=== PATIENT | female | born 1935 | race Caucasian/White ===

== ENCOUNTER → 2016-11-11 | Outpatient (CLI) | payer MEDICARE ==
--- NOTE | 2016-11-11 12:45 | REP ---
Chest x-ray: Two views. History: Shortness of breath. Comparison chest x-ray July 29, 2014. Findings: There is a large hiatal hernia overlying the heart. Cardiomegaly is observed and there is evidence of left atrial enlargement. There is blunting of the posterior and right lateral pleural angles indicating small bilateral effusions. Pulmonary vasculature is congested and indistinct and there is a diffuse perihilar pattern of alveolar and some interstitial opacity consistent with pulmonary edema. Mart B lines are present. Impression: CHF pattern with moderate pulmonary edema. Large hiatal hernia. Small effusions. Signed by Rodríguez Lema MD 11/11/2016 01:43 P
== END ==
LOC: M SMT 11:48
PROVIDERS: ATTEND Family Medicine
DX: K44.9 Diaphragmatic hernia without obstruction or gangrene (principal); I51.7 Cardiomegaly; J81.0 Acute pulmonary edema; J90 Pleural effusion, not elsewhere classified; M1A.0720 Idiopathic chronic gout, left ankle and foot, without tophus (tophi)
CPT/HCPCS: 36415; 71020; 84550; G0463

== ENCOUNTER → 2016-11-21 | Outpatient (CLI) | payer MEDICARE ==
[2016-11-21 18:11] LABS: CALCIUM LEVEL 9.5 MG/DL (8.8-10.2); CREATININE FOR GFR 0.97 MG/DL (0.55-1.02); POTASSIUM SERUM 3.9 MEQ/L (3.5-5.1)
== END ==
LOC: M SMT 14:18
PROVIDERS: ATTEND Family Medicine
DX: I10 Essential (primary) hypertension (principal)

== ENCOUNTER → 2016-12-04 | Outpatient (CLI) | payer MEDICARE ==
--- NOTE | 2016-12-05 05:53 | ECHO ---
DATE OF PROCEDURE: 12/04/2016 DATE OF : 1935 AGE: 81 REFERRING PROVIDER: Dr. Elvia Butcher. NETWORK OPERATIONS PROJECT MANAGER: Dr. Richards. PATIENT LOCATION: Outpatient. REASON FOR ECHOCARDIOGRAM: Atrial fibrillation. 2D MEASUREMENTS: IVS: 1.1 cm LV: 3.9 cm LVPW: 1.1 cm LA: 4.8 cm Aorta: 2.5 cm IVC: 2.3 cm DOPPLER MEASUREMENTS: Peak velocity across the aortic valve: 1.5 m/s Peak velocity across the LVOT: 0.78 m/s Mitral E: 1.3 Maximum tricuspid valve velocity: 3.1 m/s 2D COMMENTS: 1. Normal left ventricular size, wall thickness and normal global left ventricular systolic function. The estimated global left ventricular systolic ejection fraction is 65% to 70%. 2. Mildly enlarged left atrium. The right atrium also is enlarged. Normal right ventricle. 3. The atrial septum appeared to be normal without evidence of defect or shunt. 4. Normal aortic root. 5. No pericardial effusion seen. 6. Mildly calcified aortic valve with normal leaflet excursion. Moderately calcified mitral annulus with normal anterior mitral valve leaflet motion. Normal tricuspid valve and pulmonic valve. The proximal pulmonary artery branches were not well visualized. 7. The inferior vena cava was mildly enlarged, central venous pressure mildly elevated. DOPPLER: It detects mild aortic regurgitation, moderate to severe mitral regurgitation and moderate to severe tricuspid regurgitation. The calculated pulmonary artery systolic pressure varies between 40 to 50 mmHg. Assessment of the left ventricular diastolic function was limited in view of the underlying atrial fibrillation. IMPRESSION: 1. Normal global left ventricular systolic function. 2. Aortic valve sclerosis with mild aortic regurgitation but no aortic stenosis. 3. Mitral annulus calcification with moderate to severe mitral regurgitation and mildly enlarged left atrium. 4. Moderately severe tricuspid regurgitation with moderate pulmonary hypertension and dilated right atrium. 5. There are some features of elevated central venous pressure.
== END ==
LOC: M CARPUL 09:14
PROVIDERS: ATTEND Family Medicine
DX: I48.2 Chronic atrial fibrillation (principal); R60.9 Edema, unspecified

== ENCOUNTER → 2017-04-03 | Outpatient (CLI) | payer MEDICARE ==
--- NOTE | 2017-04-07 10:33 | DEXA ---
AP SPINE L1 - L4 1.105 -0.7 1.1 LT FEMUR TOTAL 0.651 -2.8 -0.8 RT FEMUR TOTAL 0.612 -3.1 -1.1 TOTAL BODY TOTAL OTHER DUAL FEMUR FRAX* ASSESSMENT Risk factors: None. 10 year probability of fracture Major osteoporotic fracture 20.8 % Hip fracture 7.6 % COMMENTS: Normal bone densitometry of the spine. There is low bone density of the left hip. There is osteoporosis of the right hip. The decreased density of the spine does represent a significant change. The decreased density of the left hip does represent a significant change. The decreased density of the right hip does represent a significant change. The density of the spine has decreased 16.5% since the initial exam on 2002. The spine density has decreased 20.6% since the most recent exam on 01/07/2012. The density of the left hip has decreased 27.6% since the initial exam on 2002. The density of the left hip has decreased 23.3% since the most recent exam on . The density of the right hip has decreased 35.0% since the initial exam on 09/05. The density of the right hip has decreased 22.9% since the most recent exam on 01/07/2012. FOLLOW-UP: Recommendation for the next bone density exam: 2 years. LEAH
== END ==
LOC: M WHC 12:53
PROVIDERS: ATTEND Family Medicine
DX: Z13.820 Encounter for screening for osteoporosis (principal); Z78.0 Asymptomatic menopausal state

== ENCOUNTER → 2017-05-29 | Outpatient (REF) | payer MEDICARE ==
[2017-05-29 12:12] LABS: CALCIUM LEVEL 9.4 MG/DL (8.8-10.2); CREATININE FOR GFR 1.12 MG/DL (0.55-1.02); GLOMERULAR FILTRATION RATE 49.8 (>32); POTASSIUM SERUM 3.7 MEQ/L (3.5-5.1)
== END ==
LOC: M SFHCPLAZ 10:03
PROVIDERS: ATTEND Family Medicine
DX: N18.3 Chronic kidney disease, stage 3 (moderate) (principal); I12.9 Hypertensive chronic kidney disease with stage 1 through stage 4 chronic kidney disease, or unspecified chronic kidney disease

== ENCOUNTER → 2017-12-29 | Outpatient (REF) | payer MEDICARE ==
[2017-12-29 14:00] LABS: ANION GAP 7 MEQ/L (8-16); BLOOD UREA NITROGEN 40 MG/DL (7-18); CALCIUM LEVEL 9.7 MG/DL (8.8-10.2); CARBON DIOXIDE LEVEL 30 MEQ/L (21-32); CHLORIDE LEVEL 106 MEQ/L (98-107); GLOMERULAR FILTRATION RATE 50.9 (>32); GLUCOSE, FASTING 83 MG/DL (70-100); POTASSIUM SERUM 4.2 MEQ/L (3.5-5.1); SODIUM LEVEL 143 MEQ/L (136-145)
== END ==
LOC: M SFHCPLAZ 10:21
DX: I10 Essential (primary) hypertension (principal)
CPT/HCPCS: 80048

== ENCOUNTER → 2019-02-03 | Outpatient (REF) | payer MEDICARE ==
[2019-02-03 16:59] LABS: CALCIUM LEVEL 9.6 MG/DL (8.8-10.2); CREATININE FOR GFR 1.08 MG/DL (0.55-1.30); GLOMERULAR FILTRATION RATE 51.7 (>32); MAGNESIUM LEVEL 2.3 MG/DL (1.8-2.4); POTASSIUM SERUM 4.1 MEQ/L (3.5-5.1); THYROID STIMULATING HORMONE 1.63 uIU/ML (0.358-3.740)
[2019-02-03 17:00] LABS: TOTAL 25(OH) VITAMIN D 34.4 NG/ML (30.0-100.0)
== END ==
LOC: M SFHCPLAZ 14:39
PROVIDERS: ATTEND Family Medicine
DX: I10 Essential (primary) hypertension (principal); R41.3 Other amnesia; F32.0 Major depressive disorder, single episode, mild
CPT/HCPCS: 36415; 80048; 82306; 82607; 83735; 84443; G0463

== ENCOUNTER → 2019-09-06 | Outpatient (REF) | payer MEDICARE ==
[2019-09-06 11:13] LABS: CALCIUM LEVEL 10.2 MG/DL (8.8-10.2); CREATININE FOR GFR 0.95 MG/DL (0.55-1.30); POTASSIUM SERUM 3.8 MEQ/L (3.5-5.1)
[2019-09-08 00:06] LABS: CREATININE, URINE 15.7 mg/dL (20.0-300.0)
== END ==
LOC: M SFHCPLAZ 08:18
PROVIDERS: ATTEND Family Medicine
DX: I12.9 Hypertensive chronic kidney disease with stage 1 through stage 4 chronic kidney disease, or unspecified chronic kidney disease (principal); N18.3 Chronic kidney disease, stage 3 (moderate); Z51.81 Encounter for therapeutic drug level monitoring; Z23 Encounter for immunization
CPT/HCPCS: 36415; 80048; 80307; 90682; G0008; G0463

== ENCOUNTER → 2020-04-18 | Outpatient (REF) | payer MEDICARE ==
[2020-04-18 13:30] LABS: CALCIUM LEVEL 9.8 MG/DL (8.8-10.2); GLOMERULAR FILTRATION RATE 56.4 (>32); URIC ACID 8.7 MG/DL (2.6-6.0)
[2020-04-18 13:34] LABS: HEMATOCRIT 39.7 % (36.0-47.0); HEMOGLOBIN 12.5 g/dl (12.0-15.5); MEAN CORPUSCULAR HEMOGLOBIN 30.6 pg (27.0-33.0); MEAN CORPUSCULAR HGB CONC 31.5 g/dl (32.0-36.5); MEAN CORPUSCULAR VOLUME 97.3 fl (80.0-96.0); PLATELET COUNT, AUTOMATED 227 10^3/uL (150-450); RED BLOOD COUNT 4.08 10^6/uL (4.00-5.40); WHITE BLOOD COUNT 6.8 10^3/uL (4.0-10.0)
[2020-04-18 14:05] LABS: TOTAL 25(OH) VITAMIN D 75.1 NG/ML (30.0-100.0)
== END ==
LOC: M SFHCPLAZ 11:34
PROVIDERS: ATTEND Family Medicine
DX: N18.3 Chronic kidney disease, stage 3 (moderate) (principal); I12.9 Hypertensive chronic kidney disease with stage 1 through stage 4 chronic kidney disease, or unspecified chronic kidney disease; M1A.0720 Idiopathic chronic gout, left ankle and foot, without tophus (tophi); E55.9 Vitamin D deficiency, unspecified
CPT/HCPCS: 36415; 80048; 82306; 84550; 85027; G0463

== ENCOUNTER 2020-08-24 10:37 | Inpatient (IN) | payer MEDICARE ==
[~2020-08-24] VITALS: Ht 147.3 cm; Wt 65.5 kg
[~2020-08-24 10:37] MED LIST: bisoproloL fumarate 5 MG TAB PO SCH
[2020-08-24] MEDS ORDERED: BISO5TAB14 PO (11:01)
[2020-08-24] MEDS ORDERED: FURO80TA2 PO (11:01)
[2020-08-24] MEDS ORDERED: VITA500030 PO (11:01)
[2020-08-24] MEDS ORDERED: AMLO1TAB25 PO (11:01)
[2020-08-24] MEDS ORDERED: SERT25TA21 PO (11:01)
[2020-08-24 11:15] LABS: VENOUS BASE EXCESS -3.5 (-2.0-2.0); VENOUS HCO3 22.5 MEQ/L (23.0-27.0); VENOUS O2 SATURATION 68.7 % (60.0-80.0); VENOUS PARTIAL PRESSURE CO2 44.2 mmHg (38.0-50.0); VENOUS PARTIAL PRESSURE O2 38.8 mmHg (30.0-50.0); VENOUS PH 7.325 UNITS (7.330-7.430); VENOUS STANDARD HCO3 20.9 MEQ/L; VENOUS TOTAL CO2 23.9 MEQ/L (24.0-28.0)
--- NOTE | 2020-08-24 11:18 | REP ---
INDICATION: Altered Mental Status. COMPARISON: None. TECHNIQUE: Helical scanning is acquired. 5 mm axial images were reformatted. Coronal MPR images were generated. FINDINGS: Bone window settings demonstrate an intact bony calvarium. There is no evidence of skull fracture or incidental bony calvarial lesion. The visualized paranasal sinuses appear clear. No intraorbital abnormality is seen. On soft tissue window setting images; the lateral, third, and fourth ventricles are normal in size and position. Alonzo-white differentiation pattern is normal above and below the tentorium. There are is no evidence of intracranial hemorrhage. No mass, edema, infarction, or midline shift is seen. No extra-axial fluid collection is appreciated. There is mild diffuse cerebral atrophy. An old lacunar infarct is seen in the left thalamus. Minimal small vessel changes are noted. There is heavy vascular calcification in the distal internal carotid arteries. IMPRESSION: Diffuse atrophy and vascular calcification. Old lacunar infarct in the left thalamus. No acute intracranial abnormality.. <Electronically signed by Genaro Lema > 08/24/20 [id number]
--- NOTE | 2020-08-24 11:19 | REP ---
INDICATION: Altered Mental Status. COMPARISON: 11/11/2016 and 07/29/2014. TECHNIQUE: Single frontal portable view of the chest is performed. FINDINGS: There is no acute infiltrate identified. There is cardiomegaly. There is calcification of the thoracic aorta. There is a large hiatal hernia projecting over the left lung base. IMPRESSION: No evidence of acute pulmonary disease. Cardiomegaly. Large hiatal hernia. <Electronically signed by Elias Alonzo > 08/24/20 [id number]
--- NOTE | 2020-08-24 11:21 | REP ---
INDICATION: Altered Mental Status. COMPARISON: Comparison is made with images from CT neck dated July 29, 2014.. TECHNIQUE: Helical scanning is acquired and overlapping 2 mm high resolution axial images were generated and reviewed at bone and soft tissue window settings. Coronal and sagittal multiplanar re-formations images are generated. FINDINGS: There is no evidence of cervical spine element fracture. No skull base fracture is seen. Cervical vertebral body heights are preserved. Alignment is normal. Facet joints are normally aligned bilaterally at each cervical level on multiplanar re-formations images. There is no evidence of intraspinal or paraspinal hematoma. No extra vertebral abnormality is seen. There is advanced degenerative spondylosis. There is a stable degenerative anterior subluxation of C3 over C4 measuring 4 mm. This is unchanged from the 2014 prior study. There is associated degenerative discogenic spurring. Advanced degenerative disc disease is seen at C4-5 C5-6 and C6-7. There is osteoarthritic facet hypertrophy in the midcervical spine bilaterally most pronounced on the left at C3-4 and C4-5 and on the right at C4-5 and C5-6. IMPRESSION: Degenerative spondylosis changes. 4 mm stable degenerative C3-4 spondylolisthesis unchanged from 2014 CT study. No fracture or other acute abnormality.. <Electronically signed by Genaro Lema > 08/24/20 [id number]
[2020-08-24 11:22] LABS: BASO % 0.3 % (0.0-1.0); EOS % 0.1 % (0.0-3.0); HEMOGLOBIN 13.8 g/dl (12.0-15.5); LYMPH # 0.6 10^3/uL (1.5-5.0); MEAN CORPUSCULAR HEMOGLOBIN 29.7 pg (27.0-33.0); MEAN CORPUSCULAR HGB CONC 32.9 g/dl (32.0-36.5); MEAN CORPUSCULAR VOLUME 90.3 fl (80.0-96.0); MONO # 0.9 10^3/uL (0.0-0.8); MONO % 8.9 % (0.0-5.0); NEUTROPHILS # 8.4 10^3/uL (1.5-8.5); NEUTROPHILS % 84.1 % (36.0-66.0); PLATELET COUNT, AUTOMATED 229 10^3/uL (150-450); RED BLOOD COUNT 4.65 10^6/uL (4.00-5.40)
[2020-08-24 12:06] LABS: ALBUMIN 3.3 GM/DL (3.2-5.2); BILIRUBIN,DIRECT 0.6 MG/DL (0.0-0.2); BILIRUBIN,TOTAL 1.3 MG/DL (0.2-1.0); THYROID STIMULATING HORMONE 1.65 uIU/ML (0.358-3.740); TOTAL PROTEIN 6.9 GM/DL (6.4-8.2)
[2020-08-24] MEDS ORDERED: NS 1,000 ML IV SCH (14:30)
--- NOTE | 2020-08-24 15:30 | HPEPDOC ---
General Date of Admission 08/24/20 Date of Service: Aug 24, 2020 Chief Complaint The patient is a 85-year-old female admitted with a reason for visit of AMS. Source: Patient Exam Limitations: Dementia Timing/Duration: 24 hours Severity: Moderate History of Present Illness Patient is 85 years old female with past medical history of atrial fibrillation, dementia, diastolic CHF presented hospital after mechanical fall. According to her family patient was found on the floor in her apartment near the bed. Patient couldn't stand up and probably she was lying on the floor all night. In ER patient was found to have CPK 1039, creatinine 1.5. CT head negative for acute bleeding or stroke. Home Medications Scheduled Amlodipine Besylate (Amlodipine Besylate) 10 Mg Tablet, 10 MG PO DAILY, (Reported) Bisoprolol Fumarate (Bisoprolol Fumarate) 5 Mg Tablet, 5 MG PO DAILY, (Reported) Cholecalciferol (Vitamin D3) (Vitamin D3) 125 Mcg Tablet, 125 MCG PO DAILY, (Reported) Furosemide (Furosemide) 80 Mg Tablet, 80 MG PO DAILY, (Reported) Sertraline HCl (Sertraline HCl) 25 Mg Tablet, 25 MG PO DAILY, (Reported) Allergies Coded Allergies: No Known Allergies (Unverified , 08/24/20) Past Medical History Medical History ATRIAL FIBRILLATION HEART FAILURE; ECHO 12/04/16 LVEF 65-70% AND UNABLE TO ASSESS DIASTOLIC FUNCTION DUE TO AFIB CHRONIC BACK PAIN; MRI 05/2016 SHOWED SPINAL NERVE COMPRESSION AT L3 AND L4 DEPENDENT EDEMA CKD 3 GOUT HYPERTENSION Surgical History NO SURGICAL HISTORY DOCUMENTED. Family History FATHER: MOTHER: 1 SON(S) , 1 DAUGHTER(S) - HEALTHY. DENIES FAMILY HISTORY OF COLON CANCER OR BREAST CANCER. Social History * Smoker: Denies Alcohol: Denies Drugs: denies A-FIB/CHADSVASC A-FIB History Current/History of A-Fib/PAF?: Yes Current PO Anticoag Therapy: No Review of Systems Constitutional: Denies: Chills, Fever Eyes: Denies: Pain ENT: Denies: Head Aches, Ear Pain Skin: Denies: Rash Pulmonary: Denies: Dyspnea Cardiovascular: Denies: Chest Pain Gastrointestinal: Denies: Nausea Genitourinary: Denies: Dysuria, Frequency Hematologic: Denies: Bruising Endocrine: Denies: Polydipsia, Polyphagia Musculoskeletal: Denies: Neck Pain Neurological: Denies: Weakness Psych: Reports: Mood Normal Physical Examination General Exam: Positive: Alert, No Acute Distress Eye Exam: Positive: PERRLA ENT Exam: Positive: Atraumatic Neck Exam: Positive: Supple; Negative: JVD Chest Exam: Positive: Clear to auscultation Heart Exam: Positive: Irregular Rhythm Telemetry: Positive: Atrial fibrillation Abdomen Exam: Positive: Normal bowel sounds Extremity Exam: Negative: Clubbing, Cyanosis Skin Exam: Positive: Nl turgor and temperature Neuro Exam: Positive: Sensation Intact, Reflexes 2+ Psych Exam: Positive: Other (dementia); Negative: Memory Intact Vital Signs Vital Signs Date Time Temp Pulse Resp B/P (MAP) Pulse Ox O2 Delivery O2 Flow Rate FiO2 08/24/20 12:49 100 18 143/90 (107) 97 Room Air 08/24/20 10:55 98.9 Laboratory Data Labs 24H Laboratory Tests 2 08/24/20 10:59: Blood Gas Bicarbonate Standard 20.9, Venous Blood pH 7.325L, Venous Blood Partial Pressure CO2 44.2, Venous Blood Partial Pressure O2 38.8, Venous Blood Total Carbon Dioxide 23.9L, Venous Blood HCO3 22.5L, Venous Blood Oxygen Saturation 68.7, Venous Blood Base Excess -3.5L, Osmolality 286, Total Bilirubin 1.3H, Direct Bilirubin 0.6H, Aspartate Amino Transf (AST/SGOT) 73H, Alanine Aminotransferase (ALT/SGPT) 36, Alkaline Phosphatase 104, Ammonia < 10, Total Creatine Kinase 1039H, Total Protein 6.9, Albumin 3.3, Albumin/Globulin Ratio 0.9L, Thyroid Stimulating Hormone (TSH) 1.650 08/24/20 11:00: Immature Granulocyte % (Auto) 0.6, Neutrophils (%) (Auto) 84.1H, Lymphocytes (%) (Auto) 6.0L, Monocytes (%) (Auto) 8.9H, Eosinophils (%) (Auto) 0.1, Basophils (%) (Auto) 0.3, Neutrophils # (Auto) 8.4, Lymphocytes # (Auto) 0.6L, Monocytes # (Auto) 0.9H, Eosinophils # (Auto) 0.0, Basophils # (Auto) 0.0, Nucleated Red Blood Cells % (auto) 0.0, Lactic Acid Level 1.6 08/24/20 11:27: POC Glucose (Misc Panel) 147H, POC Sodium (Misc Panel) 132L, POC Potassium (Misc Panel) 3.4L, POC Chloride (Misc Panel) 99, POC Total CO2 (Misc Panel) 24.0, POC Blood Urea Nitrogen (Misc Panel 32H, POC Ionized Calcium (Misc Panel) 4.6, POC Creatinine (Misc Panel) 1.5H, POC Hematocrit (Misc Panel) 43.0 08/24/20 11:31: POC Troponin I (Misc) 0.10H 08/24/20 11:41: Urine Color TONIO, Urine Appearance CLEAR, Urine pH 6.0, Urine Specific [place] 1.032, Urine Protein 3+H, Urine Glucose (UA) 1+H, Urine Ketones TRACEH, Urine Blood 2+H, Urine Nitrite NEGATIVE, Urine Bilirubin NEGATIVE, Urine Urobilinogen 0.2, Urine Leukocyte Esterase NEGATIVE, Urine WBC (Auto) 0, Urine RBC (Auto) 1, Urine Hyaline Casts (Auto) 0, Urine Bacteria (Auto) NEGATIVE, Urine Squamous Epithelial Cells 0, Urine Sperm (Auto) CBC/BMP Laboratory Tests 08/24/20 11:00 Assessment/Plan Patient is 85 years old female with past medical history of atrial fibrillation, dementia, diastolic CHF presented hospital after mechanical fall. According to her family patient was found on the floor in her apartment near the bed. Patient couldn't stand up and probably she was lying on the floor all night. In ER patient was found to have CPK 1039, creatinine 1.5. CT head negative for acute bleeding or stroke. Problems (1) Physical deconditioning Status: Chronic Problem Text: Patient was found on the floor due to mechanical fall Imaging study negative PT/OT (2) Rhabdomyolysis Status: Acute Problem Text: Secondary to mechanical fall IV fluid Continue to monitor CPK (3) Atrial fibrillation Status: Chronic Problem Text: Patient was not on the anticoagulation I started apixaban 5 milligram twice a day Patient has tachycardia most likely secondary to dehydration and most likely she missed her dose of bisoprolol Metoprolol tartrate 25 mg once now (4) Hypertension Status: Chronic Problem Text: Continue home meds Plan / VTE VTE Prophylaxis Ordered?: Yes SAMANTHA MCKEE DO Aug 24, 2020 15:30
[2020-08-24] MEDS: NS 1,000 ML IV SCH ×2 (15:54→21:57)
[2020-08-24] MEDS ORDERED: METOPROLOL TART 25 MG TABLET PO ONE (16:00)
[2020-08-24] MEDS: ONDANSETRON 4MG/2ML VIAL IV PRN ×2 (16:31→16:32)
[2020-08-24] MEDS: amLODIPine 10 MG TAB PO SCH (16:32)
[2020-08-24] MEDS: SERTRALINE HCL 25 MG TABLET PO SCH (16:32)
[2020-08-24 17:05] VITALS: BP 180/90
[2020-08-24] MEDS ORDERED: CAPTOpril 6.25 MG PER 1/2 TABLET PO ONE (17:30)
[2020-08-24 18:54] VITALS: BP 168/84
[2020-08-24] MEDS ORDERED: METOPROLOL TART 12.5 MG PER 1/2 TAB PO SCH (21:00)
[2020-08-24] MEDS ORDERED: HEPARIN SOD (PORCINE) 5000UNITS/ML 1ML VIAL/SYRINGE SC SCH (21:00)
[2020-08-24] MEDS: APIXABAN 5 MG TAB (ELIQUIS) PO SCH (21:57)
[2020-08-24 22:00] VITALS: BP 151/91
[2020-08-25] MEDS: NS 1,000 ML IV SCH ×3 (03:30→14:24)
[2020-08-25 06:00] VITALS: BP 172/82
[2020-08-25 07:02] LABS: HEMATOCRIT 38.6 % (36.0-47.0); MEAN CORPUSCULAR HEMOGLOBIN 30.4 pg (27.0-33.0); MEAN CORPUSCULAR HGB CONC 33.7 g/dl (32.0-36.5); MEAN CORPUSCULAR VOLUME 90.4 fl (80.0-96.0); PLATELET COUNT, AUTOMATED 202 10^3/uL (150-450); RED BLOOD COUNT 4.27 10^6/uL (4.00-5.40); WHITE BLOOD COUNT 8.1 10^3/uL (4.0-10.0)
[2020-08-25 07:34] LABS: ALBUMIN 2.6 GM/DL (3.2-5.2); BILIRUBIN,TOTAL 0.7 MG/DL (0.2-1.0); CALCIUM LEVEL 8.7 MG/DL (8.8-10.2); CREATININE FOR GFR 1.6 MG/DL (0.55-1.30); GLOMERULAR FILTRATION RATE 32.8 (>32); MAGNESIUM LEVEL 2.2 MG/DL (1.8-2.4); TOTAL PROTEIN 5.8 GM/DL (6.4-8.2)
[2020-08-25] MEDS ORDERED: POTASSIUM CHLORIDE 10 MEQ SR TABLET PO ONE ×2 (08:30→14:00)
[2020-08-25] MEDS ORDERED: FLUBLOK(EGG FREE)(QUAD)INFLUENZA VACC 0.5ML SYRINGE 18YRS & OLDER IM ONE (09:00)
[2020-08-25] MEDS ORDERED: lisinopriL 20 MG TAB PO SCH (09:00)
[2020-08-25] MEDS ORDERED: METOPROLOL TART 25 MG TABLET PO SCH (09:00)
[2020-08-25] MEDS: amLODIPine 10 MG TAB PO SCH (09:33)
[2020-08-25] MEDS: APIXABAN 5 MG TAB (ELIQUIS) PO SCH ×3 (09:34→21:00)
[2020-08-25] MEDS: SERTRALINE HCL 25 MG TABLET PO SCH (09:34)
--- NOTE | 2020-08-25 13:26 | IPNPDOC ---
Text Note Date of Service The patient was seen on 08/25/20. NOTE Subjective: No any acute events overnight. Patient denied fever, chills, nausea, diarrhea or dysuria Objective: GENERAL APPEARANCE: NAD HEENT: no scleral icterus, no JVD, EOMI CARDIOVASCULAR: S1S2 LUNGS: CTA ABDOMEN: soft & not tender w palpitation MUSCULOSKELETAL: no cyanosis, no swelling INTEGUMENT: no generalized palor NEUROLOGICAL: cranial nerve function from 2-12 intact intact, follows commands, speech not dysarthric Assessment/Plan Patient is 85 years old female with past medical history of atrial fibrillation, dementia, diastolic CHF presented hospital after mechanical fall. According to her family patient was found on the floor in her apartment near the bed. Patient couldn't stand up and probably she was lying on the floor all night. In ER patient was found to have CPK 1039, creatinine 1.5. CT head negative for acute bleeding or stroke. Problems (1) Physical deconditioning Patient was found on the floor due to mechanical fall Imaging study negative PT/OT (2) Rhabdomyolysis Improved Secondary to mechanical fall IV fluid CPK trended down (3) Atrial fibrillation Patient was not on the anticoagulation I started apixaban 5 milligram twice a day Patient has tachycardia most likely secondary to dehydration and most likely she missed her dose of bisoprolol Metoprolol tartrate 25 mg once now (4) Hypertension Continue home meds VS,Fishbone, I+O VS, Fishbone, I+O Laboratory Tests 08/25/20 06:32 Vital Signs Date Time Temp Pulse Resp B/P (MAP) Pulse Ox O2 Delivery O2 Flow Rate FiO2 08/25/20 09:33 100 139/99 08/25/20 06:00 97.6 20 95 Room Air I&O- Last 24 Hours up to 6 AM 08/25/20 06:00 Intake Total 1720 ml Output Total 0 ml Balance 1720 ml SAMANTHA MCKEE DO Aug 25, 2020 13:26
[2020-08-25 14:00] VITALS: BP 97/59
[2020-08-25] MEDS: QUEtiapine FUMARATE 12.5 MG HALF-TAB PO ONE ×3 (18:15→20:14)
[2020-08-25] MEDS: METOPROLOL TART 25 MG TABLET PO SCH ×2 (20:16→21:00)
[2020-08-25 22:00] VITALS: BP 109/89
[2020-08-26 06:00] VITALS: BP 125/85
[2020-08-26 06:53] LABS: HEMATOCRIT 34.2 % (36.0-47.0); HEMOGLOBIN 11.1 g/dl (12.0-15.5); MEAN CORPUSCULAR HEMOGLOBIN 30.5 pg (27.0-33.0); MEAN CORPUSCULAR HGB CONC 32.5 g/dl (32.0-36.5); PLATELET COUNT, AUTOMATED 195 10^3/uL (150-450); RED BLOOD COUNT 3.64 10^6/uL (4.00-5.40); WHITE BLOOD COUNT 6.3 10^3/uL (4.0-10.0)
[2020-08-26 07:03] LABS: CALCIUM LEVEL 8.3 MG/DL (8.8-10.2); CREATININE FOR GFR 1.87 MG/DL (0.55-1.30); GLOMERULAR FILTRATION RATE 27.4 (>32); MAGNESIUM LEVEL 2.2 MG/DL (1.8-2.4); POTASSIUM SERUM 3.9 MEQ/L (3.5-5.1)
--- NOTE | 2020-08-26 08:13 | ECGEPIP ---
[facility] Test Date: 2020-08-25 Pat Name: NEREYDA GARLAND Department: Room: [place] [address] Gender: Female Rheumatology Specialist: GLADIS : 1935 Requested By: SAMANTHA MCKEE Order Number: [id number] Reading MD: Jeffery Murray Measurements Intervals [place] Rate: 67 P: MD: 0 QRS: 41 QRSD: 103 T: 30 QT: 295 QTc: 313 Interpretive Statements ATRIAL FIBRILLATION NONSPECIFIC ST & T-WAVE ABNORMALITY Low QRS complex voltage in the limb leads Nonspecific ST-T wave abnormalities Electronically Signed on 08-26-2020 8:13:18 EST by Jeffery Murray
[2020-08-26] MEDS: amLODIPine 10 MG TAB PO SCH (09:29)
[2020-08-26] MEDS: SERTRALINE HCL 25 MG TABLET PO SCH (09:29)
[2020-08-26] MEDS: APIXABAN 5 MG TAB (ELIQUIS) PO SCH ×2 (09:30→22:05)
[2020-08-26] MEDS: NS 1,000 ML IV SCH ×2 (09:30→15:15)
[2020-08-26] MEDS: METOPROLOL TART 25 MG TABLET PO SCH (09:30)
[2020-08-26] MEDS ORDERED: PILL CUTTER 1 EACH XX PRN (09:45)
[2020-08-26 14:00] VITALS: BP 161/85
--- NOTE | 2020-08-26 15:40 | IPNPDOC ---
Text Note Date of Service The patient was seen on 08/26/20. NOTE Subjective: No any acute events overnight. Patient disoriented in time but or iented in place Objective: GENERAL APPEARANCE: NAD HEENT: no scleral icterus, no JVD, EOMI CARDIOVASCULAR: S1S2 LUNGS: CTA ABDOMEN: soft & not tender w palpitation MUSCULOSKELETAL: no cyanosis, no swelling INTEGUMENT: no generalized palor NEUROLOGICAL: cranial nerve function from 2-12 intact intact, follows commands, speech not dysarthric Assessment/Plan Patient is 85 years old female with past medical history of atrial fibrillation, dementia, diastolic CHF presented hospital after mechanical fall. According to her family patient was found on the floor in her apartment near the bed. Patient couldn't stand up and probably she was lying on the floor all night. In ER patient was found to have CPK 1039, creatinine 1.5. CT head negative for acute bleeding or stroke. Problems (1) Physical deconditioning Patient was found on the floor due to mechanical fall Imaging study negative PT/OT (2) Rhabdomyolysis Improved Secondary to mechanical fall CPK trended down (3) Atrial fibrillation Patient was not on the anticoagulation I started apixaban 5 milligram twice a day Patient had tachycardia most likely secondary to dehydration and most likely she missed her dose of bisoprolol c/w Metoprolol tartrate (4) Hypertension Continue home meds LUIS MANUEL 2/2 to rhabdomyolysis I decreased the dose of lisinopril to 10 mg VS,Fishbone, I+O VS, Fishbone, I+O Laboratory Tests 08/26/20 05:47 Vital Signs Date Time Temp Pulse Resp B/P (MAP) Pulse Ox O2 Delivery O2 Flow Rate FiO2 08/26/20 14:00 97.5 113 18 161/85 (110) 97 Room Air I&O- Last 24 Hours up to 6 AM 08/26/20 06:00 Intake Total 2520 ml Output Total 400 ml Balance 2120 ml SAMANTHA MCKEE DO Aug 26, 2020 15:40
[2020-08-26] MEDS ORDERED: lisinopriL 10 MG TAB PO ONE (16:00)
--- NOTE | 2020-08-26 16:49 | ECGEPIP ---
[facility] - ED Test Date: 2020-08-24 Pat Name: NEREYDA GARLAND Department: Room: - Gender: Female Property Manager: : 1935 Requested By: Kimber Joshi Order Number: [id number] Reading MD: Kimber Joshi Measurements Intervals [place] Rate: 93 P: VA: 0 QRS: 48 QRSD: 101 T: -10 QT: 361 QTc: 451 Interpretive Statements ATRIAL FIBRILLATION MINIMAL VOLTAGE CRITERIA FOR LVH, CONSIDER NORMAL VARIANT MODERATE ST DEPRESSION Electronically Signed on 08-26-2020 16:49:42 EST by Kimber Joshi
[2020-08-26] MEDS ORDERED: OLANZapine INTRAMUSCULAR 10MG VIAL IM ONE (18:00)
[2020-08-26] MEDS: ACETAMINOPHEN TAB 650MG DOSE (2X325MG) PO PRN (18:25)
[2020-08-26] MEDS: ONDANSETRON 4MG/2ML VIAL IV PRN (19:28)
[2020-08-26] MEDS ORDERED: METOPROLOL TART 12.5 MG PER 1/2 TAB PO SCH (21:00)
[2020-08-27 06:00] VITALS: BP 189/88
[2020-08-27 06:13] LABS: HEMATOCRIT 33.6 % (36.0-47.0); HEMOGLOBIN 11.1 g/dl (12.0-15.5); MEAN CORPUSCULAR HEMOGLOBIN 30.7 pg (27.0-33.0); MEAN CORPUSCULAR VOLUME 93.1 fl (80.0-96.0); PLATELET COUNT, AUTOMATED 198 10^3/uL (150-450); RED BLOOD COUNT 3.61 10^6/uL (4.00-5.40); WHITE BLOOD COUNT 6.5 10^3/uL (4.0-10.0)
[2020-08-27 06:31] LABS: CALCIUM LEVEL 8.5 MG/DL (8.8-10.2); CREATININE FOR GFR 1.74 MG/DL (0.55-1.30); GLOMERULAR FILTRATION RATE 29.7 (>32); MAGNESIUM LEVEL 2.1 MG/DL (1.8-2.4); POTASSIUM SERUM 3.5 MEQ/L (3.5-5.1)
[2020-08-27] MEDS ORDERED: FUROSEMIDE 40MG/4ML VIAL (J1940) IV ONE (09:00)
[2020-08-27] MEDS: amLODIPine 10 MG TAB PO SCH (10:50)
[2020-08-27] MEDS: SERTRALINE HCL 25 MG TABLET PO SCH (10:50)
[2020-08-27] MEDS: METOPROLOL TART 12.5 MG PER 1/2 TAB PO SCH ×3 (10:50→20:33)
[2020-08-27] MEDS: APIXABAN 5 MG TAB (ELIQUIS) PO SCH ×2 (10:50→20:32)
[2020-08-27 14:00] VITALS: BP 140/67
--- NOTE | 2020-08-27 15:23 | IPNPDOC ---
Text Note Date of Service The patient was seen on 08/27/20. NOTE Subjective: Patient was agitated yesterday in the evening. In the morning she seems to be more confused. She oriented in time and in place. Objective: GENERAL APPEARANCE: NAD HEENT: no scleral icterus, no JVD, EOMI CARDIOVASCULAR: S1S2 LUNGS: CTA ABDOMEN: soft & not tender w palpitation MUSCULOSKELETAL: no cyanosis, no swelling INTEGUMENT: no generalized palor NEUROLOGICAL: cranial nerve function from 2-12 intact intact, follows commands, speech not dysarthric Assessment/Plan Patient is 85 years old female with past medical history of atrial fibrillation, dementia, diastolic CHF presented hospital after mechanical fall. According to her family patient was found on the floor in her apartment near the bed. Patient couldn't stand up and probably she was lying on the floor all night. In ER patient was found to have CPK 1039, creatinine 1.5. CT head negative for acute bleeding or stroke. Problems (1) Physical deconditioning Patient was found on the floor due to mechanical fall Imaging study negative PT/OT (2) Rhabdomyolysis Improved Secondary to mechanical fall CPK trended down (3) Atrial fibrillation Patient was not on the anticoagulation I started apixaban 5 milligram twice a day Patient had tachycardia most likely secondary to dehydration and most likely she missed her dose of bisoprolol c/w Metoprolol tartrate (4) Hypertension Continue home meds LUIS MANUEL Improved today 2/2 to rhabdomyolysis Continue to monitor Delirium/encephalopathy I added Seroquel 12.5 daily at bedtime Frequent orientation VS,Gabrielle, I+O VS, Gabrielle, I+O Laboratory Tests 08/27/20 05:29 Vital Signs Date Time Temp Pulse Resp B/P (MAP) Pulse Ox O2 Delivery O2 Flow Rate FiO2 08/27/20 10:50 100 157/92 08/27/20 06:00 98.6 20 95 Room Air I&O- Last 24 Hours up to 6 AM 08/27/20 06:00 Intake Total 3300 ml Output Total 1440 ml Balance 1860 ml SAMANTHA MCKEE DO Aug 27, 2020 15:23
[2020-08-27] MEDS: BISACODYL 5 MG TAB PO SCH (16:17)
[2020-08-27] MEDS ORDERED: QUEtiapine FUMARATE 12.5 MG HALF-TAB PO SCH (21:00)
[2020-08-27 22:00] VITALS: BP 175/90
[2020-08-28 06:00] VITALS: BP 164/78
[2020-08-28 06:25] LABS: HEMATOCRIT 34.9 % (36.0-47.0); HEMOGLOBIN 11.2 g/dl (12.0-15.5); MEAN CORPUSCULAR HEMOGLOBIN 29.7 pg (27.0-33.0); MEAN CORPUSCULAR HGB CONC 32.1 g/dl (32.0-36.5); MEAN CORPUSCULAR VOLUME 92.6 fl (80.0-96.0); PLATELET COUNT, AUTOMATED 203 10^3/uL (150-450); RED BLOOD COUNT 3.77 10^6/uL (4.00-5.40); WHITE BLOOD COUNT 5.9 10^3/uL (4.0-10.0)
[2020-08-28 06:54] LABS: CALCIUM LEVEL 8.9 MG/DL (8.8-10.2); CREATININE FOR GFR 1.72 MG/DL (0.55-1.30); GLOMERULAR FILTRATION RATE 30.1 (>32); MAGNESIUM LEVEL 2.1 MG/DL (1.8-2.4); POTASSIUM SERUM 3.1 MEQ/L (3.5-5.1)
[2020-08-28] MEDS ORDERED: POTASSIUM CHLORIDE 10 MEQ SR TABLET PO ONE (08:15)
[2020-08-28] MEDS: SERTRALINE HCL 25 MG TABLET PO SCH (10:26)
[2020-08-28] MEDS: BISACODYL 5 MG TAB PO SCH (10:26)
[2020-08-28] MEDS: amLODIPine 10 MG TAB PO SCH (10:26)
[2020-08-28] MEDS: APIXABAN 5 MG TAB (ELIQUIS) PO SCH ×2 (10:26→20:48)
[2020-08-28] MEDS: METOPROLOL TART 12.5 MG PER 1/2 TAB PO SCH ×3 (10:26→21:01)
--- NOTE | 2020-08-28 16:59 | IPNPDOC ---
Text Note Date of Service The patient was seen on 08/28/20. NOTE Subjective: Patient was somnolent in the morning. She was oriented in place Objective: GENERAL APPEARANCE: NAD HEENT: no scleral icterus, no JVD, EOMI CARDIOVASCULAR: S1S2 LUNGS: CTA ABDOMEN: soft & not tender w palpitation MUSCULOSKELETAL: no cyanosis, no swelling INTEGUMENT: no generalized palor NEUROLOGICAL: cranial nerve function from 2-12 intact intact, follows commands, speech not dysarthric Assessment/Plan Patient is 85 years old female with past medical history of atrial fibrillation, dementia, diastolic CHF presented hospital after mechanical fall. According to her family patient was found on the floor in her apartment near the bed. Patient couldn't stand up and probably she was lying on the floor all night. In ER patient was found to have CPK 1039, creatinine 1.5. CT head negative for acute bleeding or stroke. Problems (1) Physical deconditioning Patient was found on the floor due to mechanical fall Imaging study negative PT/OT (2) Rhabdomyolysis Improved Secondary to mechanical fall CPK trended down (3) Atrial fibrillation Heart rate is under control Patient was not on the anticoagulation I started apixaban 5 milligram twice a day Patient had tachycardia most likely secondary to dehydration and most likely she missed her dose of bisoprolol c/w Metoprolol tartrate (4) Hypertension Continue home meds LUIS MANUEL Improved today 2/2 to rhabdomyolysis Continue to monitor Delirium/encephalopathy Patient was somnolent in the morning, DC Seroquel Frequent orientation VS,Gabrielle, I+O VS, Gabrielle, I+O Laboratory Tests 08/28/20 06:02 Vital Signs Date Time Temp Pulse Resp B/P (MAP) Pulse Ox O2 Delivery O2 Flow Rate FiO2 08/28/20 15:37 68 162/76 08/28/20 06:00 99.3 18 95 Room Air I&O- Last 24 Hours up to 6 AM 08/28/20 06:00 Intake Total 530 ml Output Total 2725 ml Balance -2195 ml SAMANTHA MCKEE DO Aug 28, 2020 16:59
[2020-08-28] MEDS: ACETAMINOPHEN TAB 650MG DOSE (2X325MG) PO PRN (20:48)
[2020-08-28 22:00] VITALS: BP 150/86
[2020-08-29 06:00] VITALS: BP 160/79
[2020-08-29 07:00] LABS: HEMATOCRIT 35.1 % (36.0-47.0); HEMOGLOBIN 11.5 g/dl (12.0-15.5); MEAN CORPUSCULAR HEMOGLOBIN 30.3 pg (27.0-33.0); MEAN CORPUSCULAR HGB CONC 32.8 g/dl (32.0-36.5); MEAN CORPUSCULAR VOLUME 92.4 fl (80.0-96.0); PLATELET COUNT, AUTOMATED 191 10^3/uL (150-450); WHITE BLOOD COUNT 8.3 10^3/uL (4.0-10.0)
[2020-08-29 07:21] LABS: CALCIUM LEVEL 8.8 MG/DL (8.8-10.2); CREATININE FOR GFR 1.42 MG/DL (0.55-1.30); GLOMERULAR FILTRATION RATE 37.6 (>32); MAGNESIUM LEVEL 1.8 MG/DL (1.8-2.4); POTASSIUM SERUM 3.4 MEQ/L (3.5-5.1)
[2020-08-29] MEDS ORDERED: POTASSIUM CHLORIDE 10 MEQ SR TABLET PO ONE (08:15)
[2020-08-29] MEDS: BISACODYL 5 MG TAB PO SCH (09:42)
[2020-08-29] MEDS: SERTRALINE HCL 25 MG TABLET PO SCH (09:42)
[2020-08-29] MEDS: METOPROLOL TART 12.5 MG PER 1/2 TAB PO SCH ×3 (09:42→20:49)
[2020-08-29] MEDS: amLODIPine 10 MG TAB PO SCH (09:42)
[2020-08-29] MEDS: APIXABAN 5 MG TAB (ELIQUIS) PO SCH ×2 (09:42→20:50)
--- NOTE | 2020-08-29 13:06 | IPNPDOC ---
Text Note Date of Service The patient was seen on 08/29/20. NOTE Subjective: Patient more awake in the morning and alert. However she is not oriented to place. Patient developed 3d time urinary retention, she was catheterized 600cc was requested Objective: GENERAL APPEARANCE: NAD HEENT: no scleral icterus, no JVD, EOMI CARDIOVASCULAR: S1S2 LUNGS: CTA ABDOMEN: soft & not tender w palpitation MUSCULOSKELETAL: no cyanosis, no swelling INTEGUMENT: no generalized palor NEUROLOGICAL: cranial nerve function from 2-12 intact intact, follows commands, speech not dysarthric Assessment/Plan Patient is 85 years old female with past medical history of atrial fibrillation, dementia, diastolic CHF presented hospital after mechanical fall. According to her family patient was found on the floor in her apartment near the bed. Patient couldn't stand up and probably she was lying on the floor all night. In ER patient was found to have CPK 1039, creatinine 1.5. CT head negative for acute bleeding or stroke. Problems Physical deconditioning Patient was found on the floor due to mechanical fall Imaging study negative PT/OT Rhabdomyolysis Improved Secondary to mechanical fall CPK trended down Atrial fibrillation Heart rate is under control Patient was not on the anticoagulation I started apixaban 5 milligram twice a day Patient had tachycardia most likely secondary to dehydration and most likely she missed her dose of bisoprolol c/w Metoprolol tartrate Hypertension Continue home meds Lisinopril added LUIS MANUEL Improved today 2/2 to rhabdomyolysis Continue to monitor Delirium/encephalopathy Delirium resolved Confusion most likely secondary to advanced dementia Urinary retention Lamas placed VS,Fishbone, I+O VS, Fishbone, I+O Laboratory Tests 08/29/20 06:34 Vital Signs Date Time Temp Pulse Resp B/P (MAP) Pulse Ox O2 Delivery O2 Flow Rate FiO2 08/29/20 09:42 76 160/78 08/29/20 06:00 98.9 8 99 Room Air I&O- Last 24 Hours up to 6 AM 08/29/20 06:00 Intake Total 980 ml Output Total 2215 ml Balance -1235 ml SAMANTHA MCKEE DO Aug 29, 2020 13:06
[2020-08-29] MEDS: ACETAMINOPHEN TAB 650MG DOSE (2X325MG) PO PRN (13:07)
[2020-08-29] MEDS ORDERED: lisinopriL 20 MG TAB PO ONE (13:15)
[2020-08-29 14:00] VITALS: BP 160/70
[2020-08-29 22:00] VITALS: BP 180/100
[2020-08-30] MEDS: ACETAMINOPHEN TAB 650MG DOSE (2X325MG) PO PRN ×3 (00:12→16:38)
[2020-08-30 02:00] VITALS: BP 168/88
[2020-08-30 06:00] VITALS: BP 158/84
[2020-08-30 06:39] LABS: HEMATOCRIT 31.5 % (36.0-47.0); HEMOGLOBIN 10.4 g/dl (12.0-15.5); MEAN CORPUSCULAR HEMOGLOBIN 30.3 pg (27.0-33.0); MEAN CORPUSCULAR VOLUME 91.8 fl (80.0-96.0); PLATELET COUNT, AUTOMATED 202 10^3/uL (150-450); RED BLOOD COUNT 3.43 10^6/uL (4.00-5.40); WHITE BLOOD COUNT 6.8 10^3/uL (4.0-10.0)
[2020-08-30 06:59] LABS: CALCIUM LEVEL 8.5 MG/DL (8.8-10.2); CREATININE FOR GFR 1.23 MG/DL (0.55-1.30); GLOMERULAR FILTRATION RATE 44.4 (>32); MAGNESIUM LEVEL 1.8 MG/DL (1.8-2.4); POTASSIUM SERUM 3.2 MEQ/L (3.5-5.1)
[2020-08-30] MEDS ORDERED: POTASSIUM CHLORIDE 10 MEQ SR TABLET PO ONE (08:00)
[2020-08-30] MEDS: BISACODYL 5 MG TAB PO SCH (09:00)
[2020-08-30] MEDS ORDERED: lisinopriL 20 MG TAB PO SCH (09:00)
[2020-08-30] MEDS: METOPROLOL TART 12.5 MG PER 1/2 TAB PO SCH ×3 (10:23→20:30)
[2020-08-30] MEDS: APIXABAN 5 MG TAB (ELIQUIS) PO SCH ×2 (10:23→20:30)
[2020-08-30] MEDS: SERTRALINE HCL 25 MG TABLET PO SCH (10:24)
[2020-08-30] MEDS: amLODIPine 10 MG TAB PO SCH (10:24)
[2020-08-30 11:39] LABS: CLOSTRIDIUM DIFFICILE PCR POSITIVE (NEGATIVE)
--- NOTE | 2020-08-30 12:23 | IPNPDOC ---
Text Note Date of Service The patient was seen on 08/30/20. NOTE Subjective: Patient developed few liquid bowel movements with foul-smelling stool. Objective: GENERAL APPEARANCE: NAD HEENT: no scleral icterus, no JVD, EOMI CARDIOVASCULAR: S1S2 LUNGS: CTA ABDOMEN: soft & not tender w palpitation MUSCULOSKELETAL: no cyanosis, no swelling INTEGUMENT: no generalized palor NEUROLOGICAL: cranial nerve function from 2-12 intact intact, follows commands, speech not dysarthric Assessment/Plan Patient is 85 years old female with past medical history of atrial fibrillation, dementia, diastolic CHF presented hospital after mechanical fall. According to her family patient was found on the floor in her apartment near the bed. Patient couldn't stand up and probably she was lying on the floor all night. In ER patient was found to have CPK 1039, creatinine 1.5. CT head negative for acute bleeding or stroke. Problems (1) Physical deconditioning Patient was found on the floor due to mechanical fall Imaging study negative PT/OT (2) Rhabdomyolysis Improved Secondary to mechanical fall CPK trended down (3) Atrial fibrillation Heart rate is under control Patient was not on the anticoagulation I started apixaban 5 milligram twice a day Patient had tachycardia most likely secondary to dehydration and most likely she missed her dose of bisoprolol c/w Metoprolol tartrate (4) Hypertension/hypertensive urgency Continue home meds I increased the dose of lisinopril 40 mg due to increased blood pressure the morning up to 180 LUIS MANUEL Improved today 2/2 to rhabdomyolysis Continue to monitor Delirium/encephalopathy Resolved Diarrhea C. difficile test positive Vancomycin by mouth 150 every 6 hours VS,Gabrielle, I+O VS, Gabrielle, I+O Laboratory Tests 08/30/20 06:16 08/30/20 06:17 Vital Signs Date Time Temp Pulse Resp B/P (MAP) Pulse Ox O2 Delivery O2 Flow Rate FiO2 08/30/20 10:23 180/80 08/30/20 10:23 80 08/30/20 06:00 98.2 19 95 Room Air I&O- Last 24 Hours up to 6 AM 08/30/20 06:00 Intake Total 1020 ml Output Total 925 ml Balance 95 ml SAMANTHA MCKEE DO Aug 30, 2020 12:23
[2020-08-30] MEDS: VANCOMYCIN ORAL SOL 250MG/5ML ORAL SYRINGE PO SCH ×3 (13:40→23:50)
[2020-08-30 14:00] VITALS: BP 171/80
[2020-08-30] MEDS ORDERED: CHLORTHALIDONE 25 MG TAB PO ONE (16:45)
[2020-08-30 17:54] VITALS: BP 166/70
[2020-08-30] MEDS: lisinopriL 20 MG TAB PO SCH (20:30)
[2020-08-30 22:00] VITALS: BP 160/106
[2020-08-30 23:30] VITALS: BP 180/70
[2020-08-31] MEDS: VANCOMYCIN ORAL SOL 250MG/5ML ORAL SYRINGE PO SCH ×4 (05:11→23:57)
[2020-08-31 06:00] VITALS: BP 147/83
[2020-08-31 06:33] LABS: HEMATOCRIT 32.3 % (36.0-47.0); HEMOGLOBIN 10.6 g/dl (12.0-15.5); MEAN CORPUSCULAR HEMOGLOBIN 30.5 pg (27.0-33.0); MEAN CORPUSCULAR HGB CONC 32.8 g/dl (32.0-36.5); MEAN CORPUSCULAR VOLUME 92.8 fl (80.0-96.0); PLATELET COUNT, AUTOMATED 229 10^3/uL (150-450); RED BLOOD COUNT 3.48 10^6/uL (4.00-5.40)
[2020-08-31 06:59] LABS: CREATININE FOR GFR 1.31 MG/DL (0.55-1.30); GLOMERULAR FILTRATION RATE 41.3 (>32); MAGNESIUM LEVEL 1.8 MG/DL (1.8-2.4); POTASSIUM SERUM 3.5 MEQ/L (3.5-5.1)
[2020-08-31] MEDS ORDERED: lisinopriL 40 MG TAB PO SCH (09:00)
[2020-08-31] MEDS ORDERED: CHLORTHALIDONE 25 MG TAB PO SCH (09:00)
[2020-08-31] MEDS: METOPROLOL TART 12.5 MG PER 1/2 TAB PO SCH ×3 (10:25→20:45)
[2020-08-31] MEDS: SERTRALINE HCL 25 MG TABLET PO SCH (10:25)
[2020-08-31] MEDS: lisinopriL 20 MG TAB PO SCH ×2 (10:25→20:44)
[2020-08-31] MEDS: amLODIPine 10 MG TAB PO SCH (10:25)
[2020-08-31] MEDS: APIXABAN 5 MG TAB (ELIQUIS) PO SCH ×2 (10:25→20:45)
[2020-08-31] MEDS: ACETAMINOPHEN TAB 650MG DOSE (2X325MG) PO PRN (10:26)
[2020-08-31] MEDS: ANALGESIC BALM CRM 120 GM TOP SCH ×2 (10:26→20:46)
[2020-08-31] MEDS ORDERED: **hydrALAZINE** 50 MG TAB PO ONE (10:45)
[2020-08-31] MEDS ORDERED: POTASSIUM CHLORIDE 10 MEQ SR TABLET PO ONE (10:45)
--- NOTE | 2020-08-31 12:55 | IPNPDOC ---
Text Note Date of Service The patient was seen on 08/31/20. NOTE Subjective: Patient developed 4 bowel movements overnight, patient not oriented in place and time the morning Objective: GENERAL APPEARANCE: NAD HEENT: no scleral icterus, no JVD, EOMI CARDIOVASCULAR: S1S2 LUNGS: CTA ABDOMEN: soft & not tender w palpitation MUSCULOSKELETAL: no cyanosis, no swelling INTEGUMENT: no generalized palor NEUROLOGICAL: cranial nerve function from 2-12 intact intact, follows commands, speech not dysarthric Assessment/Plan Patient is 85 years old female with past medical history of atrial fibrillation, dementia, diastolic CHF presented hospital after mechanical fall. According to her family patient was found on the floor in her apartment near the bed. Patient couldn't stand up and probably she was lying on the floor all night. In ER patient was found to have CPK 1039, creatinine 1.5. CT head negative for acute bleeding or stroke. Problems (1) Physical deconditioning Patient was found on the floor due to mechanical fall Imaging study negative PT/OT (2) Rhabdomyolysis Improved Secondary to mechanical fall CPK trended down (3) Atrial fibrillation Heart rate is under control Patient was not on the anticoagulation I started apixaban 5 milligram twice a day c/w Metoprolol tartrate (4) Hypertension/hypertensive urgency Continue home meds I increased the dose of lisinopril 40 mg due to increased blood pressure the morning up to 180. Patient has persistent morning hypertension I added hydralazine 3 times daily DC chlorthalidone Patient hypovolemic today due to poor oral intake LUIS MANUEL Start IV fluid. Patient kidney function worsened today due to poor oral intake Continue to monitor Delirium/encephalopathy Frequentl re orientation Diarrhea C. difficile test positive Vancomycin by mouth 150 every 6 hours C. difficile colitis See above VS,Fishbone, I+O VS, Fishbone, I+O Laboratory Tests 08/31/20 06:15 Vital Signs Date Time Temp Pulse Resp B/P (MAP) Pulse Ox O2 Delivery O2 Flow Rate FiO2 08/31/20 12:39 160/70 08/31/20 10:25 80 08/31/20 06:00 98.4 19 96 Room Air I&O- Last 24 Hours up to 6 AM 08/31/20 06:00 Intake Total 620 ml Output Total 850 ml Balance -230 ml SAMANTHA MCKEE DO Aug 31, 2020 12:55
[2020-08-31 14:00] VITALS: BP 130/70
[2020-08-31] MEDS ORDERED: LIDOCAINE 1% MDV 20ML VIAL As Ordered ONE (15:20)
[2020-08-31] MEDS: **hydrALAZINE** 50 MG TAB PO SCH ×2 (16:00→20:45)
[2020-08-31] MEDS ORDERED: SODIUM CHLORIDE 0.9% INJ 10 ML SYR IV PRN (16:45)
--- NOTE | 2020-08-31 17:32 | REP ---
PROCEDURE NAME: MIDLINE INSERTION W/ SITERITE CLINICAL INFORMATION: please insert midline today. COMPARISON: None. PROCEDURE DESCRIPTION: The procedure was performed by RUBY Medina, under the direct supervision of Dr. Lema. The risks and benefits of the procedure were explained to the patient and an informed consent was obtained both verbally and written. Directly prior to the start of the procedure a formal time-out was completed in the procedure room. The right basilic vein was localized using ultrasound guidance. The skin was prepped and draped in sterile fashion. One mL of 1% lidocaine 10 mg/mL was used as a local anesthetic. Using ultrasound guidance the patent right basilic vein was cannulated, and a 0.018 guidewire was inserted. The needle was removed and a 5.5 Armenian dilator and peel-away sheath was inserted over the guidewire. A 5.5 Armenian dual lumen catheter was cut to a length of 15 cm. The dilator was removed and the catheter was inserted over the guidewire. The peel-away sheath was removed and the catheter was flushed with heparinized saline as per hospital protocol. The catheter was affixed to the skin and a sterile dressing was applied. The patient tolerated the procedure well and there were no immediate complications. CONCLUSION: Mid line insertion into the right basilic vein under ultrasound guidance . <Electronically signed by Elayne Mora > 08/31/20 1931 <Electronically signed by Genaro Lema > 08/31/20 [id number]
[2020-08-31] MEDS: NS 1,000 ML IV SCH ×2 (17:47→18:03)
[2020-08-31] MEDS: MAGNESIUM GLUCONATE 500 MG TAB PO SCH (17:59)
[2020-08-31 18:00] VITALS: BP 112/68
[2020-08-31] MEDS: SODIUM CHLORIDE 0.9% INJ 10 ML SYR IV SCH (18:00)
[2020-08-31 22:00] VITALS: BP 157/75
[2020-09-01] MEDS: NS 1,000 ML IV SCH ×3 (03:31→22:14)
[2020-09-01] MEDS: VANCOMYCIN ORAL SOL 250MG/5ML ORAL SYRINGE PO SCH ×3 (05:24→17:33)
[2020-09-01] MEDS: SODIUM CHLORIDE 0.9% INJ 10 ML SYR IV SCH ×2 (05:25→22:14)
[2020-09-01 06:00] VITALS: BP 182/71
[2020-09-01 06:49] VITALS: BP 162/80
[2020-09-01 07:12] LABS: HEMATOCRIT 31.8 % (36.0-47.0); HEMOGLOBIN 10.1 g/dl (12.0-15.5); MEAN CORPUSCULAR HGB CONC 31.8 g/dl (32.0-36.5); MEAN CORPUSCULAR VOLUME 94.4 fl (80.0-96.0); PLATELET COUNT, AUTOMATED 234 10^3/uL (150-450); RED BLOOD COUNT 3.37 10^6/uL (4.00-5.40); WHITE BLOOD COUNT 6.1 10^3/uL (4.0-10.0)
[2020-09-01 07:35] LABS: CALCIUM LEVEL 8.8 MG/DL (8.8-10.2); CREATININE FOR GFR 1.33 MG/DL (0.55-1.30); GLOMERULAR FILTRATION RATE 40.6 (>32); MAGNESIUM LEVEL 1.8 MG/DL (1.8-2.4); POTASSIUM SERUM 3.6 MEQ/L (3.5-5.1)
[2020-09-01] MEDS: SERTRALINE HCL 25 MG TABLET PO SCH (09:51)
[2020-09-01] MEDS: APIXABAN 5 MG TAB (ELIQUIS) PO SCH ×2 (09:51→22:11)
[2020-09-01] MEDS: amLODIPine 10 MG TAB PO SCH (09:51)
[2020-09-01] MEDS: **hydrALAZINE** 50 MG TAB PO SCH ×3 (09:51→22:14)
[2020-09-01] MEDS: ANALGESIC BALM CRM 120 GM TOP SCH ×2 (09:52→22:13)
[2020-09-01] MEDS: METOPROLOL TART 12.5 MG PER 1/2 TAB PO SCH ×3 (09:52→22:13)
[2020-09-01] MEDS: MAGNESIUM GLUCONATE 500 MG TAB PO SCH (10:46)
--- NOTE | 2020-09-01 12:50 | IPNPDOC ---
Text Note Date of Service The patient was seen on 09/01/20. NOTE Subjective: Patient stated that she feels better but patient not oriented in place and time the morning Objective: GENERAL APPEARANCE: NAD HEENT: no scleral icterus, no JVD, EOMI CARDIOVASCULAR: S1S2 LUNGS: CTA ABDOMEN: soft & not tender w palpitation MUSCULOSKELETAL: no cyanosis, no swelling INTEGUMENT: no generalized palor NEUROLOGICAL: cranial nerve function from 2-12 intact intact, follows commands, speech not dysarthric Assessment/Plan Patient is 85 years old female with past medical history of atrial fibrillation, dementia, diastolic CHF presented hospital after mechanical fall. According to her family patient was found on the floor in her apartment near the bed. Patient couldn't stand up and probably she was lying on the floor all night. In ER patient was found to have CPK 1039, creatinine 1.5. CT head negative for acute bleeding or stroke. Problems (1) Physical deconditioning Patient was found on the floor due to mechanical fall Imaging study negative PT/OT (2) Rhabdomyolysis Improved Secondary to mechanical fall CPK trended down (3) Atrial fibrillation Heart rate is under control Patient was not on the anticoagulation I started apixaban 5 milligram twice a day c/w Metoprolol tartrate (4) Hypertension/hypertensive urgency Continue home meds I added hydralazine 3 times daily. Lisinopril 40 mg daily at bedtime Continue to due to poor oral intake LUIS MANUEL Start IV fluid. Patient kidney function worsened today due to poor oral intake Continue to monitor Delirium/encephalopathy Frequentl re orientation Diarrhea C. difficile test positive Vancomycin by mouth 150 every 6 hours C. difficile colitis See above Urinary retention Will DC Lamas today Voiding trial VS,Fishbone, I+O VS, Fishbone, I+O Laboratory Tests 09/01/20 07:01 Vital Signs Date Time Temp Pulse Resp B/P (MAP) Pulse Ox O2 Delivery O2 Flow Rate FiO2 09/01/20 09:52 95 165/71 09/01/20 06:00 98.0 18 96 Room Air I&O- Last 24 Hours up to 6 AM 09/01/20 06:00 Intake Total 2570 ml Output Total 950 ml Balance 1620 ml SAMANTHA MCKEE DO Sep 01, 2020 12:50
[2020-09-01 14:00] VITALS: BP 159/66
[2020-09-01 22:00] VITALS: BP 139/78
[2020-09-01] MEDS: lisinopriL 40 MG TAB PO SCH (22:12)
[2020-09-01] MEDS: ACETAMINOPHEN TAB 650MG DOSE (2X325MG) PO PRN (22:12)
[2020-09-02] MEDS: VANCOMYCIN ORAL SOL 250MG/5ML ORAL SYRINGE PO SCH ×4 (00:45→18:18)
[2020-09-02] MEDS: SODIUM CHLORIDE 0.9% INJ 10 ML SYR IV SCH ×2 (05:27→18:19)
[2020-09-02 06:00] VITALS: BP 155/91
[2020-09-02] MEDS: NS 1,000 ML IV SCH ×2 (08:00→18:19)
[2020-09-02] MEDS: APIXABAN 5 MG TAB (ELIQUIS) PO SCH ×2 (09:57→19:45)
[2020-09-02] MEDS: SERTRALINE HCL 25 MG TABLET PO SCH (09:57)
[2020-09-02] MEDS: MAGNESIUM GLUCONATE 500 MG TAB PO SCH (09:58)
[2020-09-02] MEDS: METOPROLOL TART 12.5 MG PER 1/2 TAB PO SCH ×3 (09:59→19:48)
[2020-09-02] MEDS: ANALGESIC BALM CRM 120 GM TOP SCH ×2 (09:59→19:48)
[2020-09-02] MEDS: amLODIPine 10 MG TAB PO SCH (09:59)
[2020-09-02] MEDS: **hydrALAZINE** 50 MG TAB PO SCH ×3 (10:02→19:48)
--- NOTE | 2020-09-02 10:30 | IPNPDOC ---
Text Note Date of Service The patient was seen on 09/02/20. NOTE Subjective: No any acute events overnight. Patient was able to urinate. Objective: GENERAL APPEARANCE: NAD HEENT: no scleral icterus, no JVD, EOMI CARDIOVASCULAR: S1S2 LUNGS: CTA ABDOMEN: soft & not tender w palpitation MUSCULOSKELETAL: no cyanosis, no swelling INTEGUMENT: no generalized palor NEUROLOGICAL: cranial nerve function from 2-12 intact intact, follows commands, speech not dysarthric Assessment/Plan Patient is 85 years old female with past medical history of atrial fibrillation, dementia, diastolic CHF presented hospital after mechanical fall. According to her family patient was found on the floor in her apartment near the bed. Patient couldn't stand up and probably she was lying on the floor all night. In ER patient was found to have CPK 1039, creatinine 1.5. CT head negative for acute bleeding or stroke. Problems (1) Physical deconditioning Patient was found on the floor due to mechanical fall Imaging study negative PT/OT (2) Rhabdomyolysis Improved Secondary to mechanical fall CPK trended down (3) Atrial fibrillation Heart rate is under control Patient was not on the anticoagulation I started apixaban 5 milligram twice a day c/w Metoprolol tartrate (4) Hypertension/hypertensive urgency Continue home meds I added hydralazine 3 times daily. Lisinopril 40 mg daily at bedtime. LUIS MANUEL Continue IV fluid. Patient has poor oral intake Continue to monitor Delirium/encephalopathy Improved Frequentl re orientation Diarrhea C. difficile test positive Vancomycin by mouth 150 every 6 hours C. difficile colitis See above Urinary retention Resolved Asymptomatic bacteriuria Patient developed bacteriuria when Lamas was placed due to urinary retention Lamas was removed yesterday, patient was able to urinate Continue to monitor VS,Fishbone, I+O VS, Fishbone, I+O Vital Signs Date Time Temp Pulse Resp B/P (MAP) Pulse Ox O2 Delivery O2 Flow Rate FiO2 09/02/20 10:02 180/99 09/02/20 06:00 97.6 103 19 96 Room Air I&O- Last 24 Hours up to 6 AM 09/02/20 05:59 Intake Total 2130 ml Output Total 600 ml Balance 1530 ml SAMANTHA MCKEE DO Sep 02, 2020 10:29
[2020-09-02 10:59] LABS: BASO % 0.7 % (0.0-1.0); EOS # 0.2 10^3/uL (0.0-0.5); EOS % 4.6 % (0.0-3.0); HEMATOCRIT 33.7 % (36.0-47.0); HEMOGLOBIN 10.6 g/dl (12.0-15.5); LYMPH # 0.8 10^3/uL (1.5-5.0); MEAN CORPUSCULAR HGB CONC 31.5 g/dl (32.0-36.5); MEAN CORPUSCULAR VOLUME 95.5 fl (80.0-96.0); MONO # 0.4 10^3/uL (0.0-0.8); MONO % 8.8 % (0.0-5.0); NEUTROPHILS # 2.9 10^3/uL (1.5-8.5); NEUTROPHILS % 67.4 % (36.0-66.0); PLATELET COUNT, AUTOMATED 266 10^3/uL (150-450); RED BLOOD COUNT 3.53 10^6/uL (4.00-5.40); WHITE BLOOD COUNT 4.3 10^3/uL (4.0-10.0)
[2020-09-02 11:19] LABS: CALCIUM LEVEL 8.1 MG/DL (8.8-10.2); CREATININE FOR GFR 1.19 MG/DL (0.55-1.30); GLOMERULAR FILTRATION RATE 46.1 (>32)
[2020-09-02 14:20] VITALS: BP 161/94
[2020-09-02] MEDS: lisinopriL 40 MG TAB PO SCH (19:45)
[2020-09-02] MEDS: ACETAMINOPHEN TAB 650MG DOSE (2X325MG) PO PRN (19:48)
[2020-09-02 20:00] VITALS: BP 164/96
[2020-09-02 22:00] VITALS: BP 164/96
[2020-09-03] MEDS: VANCOMYCIN ORAL SOL 250MG/5ML ORAL SYRINGE PO SCH ×4 (00:46→17:17)
[2020-09-03 06:00] VITALS: BP 189/90
[2020-09-03] MEDS: SODIUM CHLORIDE 0.9% INJ 10 ML SYR IV SCH ×2 (06:18→17:17)
[2020-09-03 07:08] LABS: BASO # 0.1 10^3/uL (0.0-0.2); BASO % 1.3 % (0.0-1.0); EOS # 0.3 10^3/uL (0.0-0.5); EOS % 5.5 % (0.0-3.0); HEMOGLOBIN 10.1 g/dl (12.0-15.5); LYMPH # 0.9 10^3/uL (1.5-5.0); LYMPH % 19.2 % (24.0-44.0); MEAN CORPUSCULAR HEMOGLOBIN 30.2 pg (27.0-33.0); MEAN CORPUSCULAR HGB CONC 31.6 g/dl (32.0-36.5); MEAN CORPUSCULAR VOLUME 95.8 fl (80.0-96.0); MONO # 0.4 10^3/uL (0.0-0.8); MONO % 8.5 % (0.0-5.0); NEUTROPHILS % 65.1 % (36.0-66.0); PLATELET COUNT, AUTOMATED 276 10^3/uL (150-450); RED BLOOD COUNT 3.34 10^6/uL (4.00-5.40); WHITE BLOOD COUNT 4.6 10^3/uL (4.0-10.0)
[2020-09-03 07:23] VITALS: BP 170/72
[2020-09-03] MEDS: SERTRALINE HCL 25 MG TABLET PO SCH (07:25)
[2020-09-03] MEDS: METOPROLOL TART 25 MG TABLET PO SCH ×4 (07:26→20:53)
[2020-09-03] MEDS: amLODIPine 10 MG TAB PO SCH (07:26)
[2020-09-03] MEDS: APIXABAN 5 MG TAB (ELIQUIS) PO SCH ×2 (07:26→20:52)
[2020-09-03] MEDS: **hydrALAZINE** 50 MG TAB PO SCH ×3 (07:27→20:52)
[2020-09-03] MEDS: CEFDINIR 300 MG CAP (OMNICEF) PO SCH ×2 (07:27→20:51)
[2020-09-03] MEDS: MAGNESIUM GLUCONATE 500 MG TAB PO SCH ×2 (07:27→20:52)
[2020-09-03 07:35] LABS: CALCIUM LEVEL 8.6 MG/DL (8.8-10.2); CREATININE FOR GFR 1.1 MG/DL (0.55-1.30); GLOMERULAR FILTRATION RATE 50.5 (>32); MAGNESIUM LEVEL 1.7 MG/DL (1.8-2.4); POTASSIUM SERUM 3.7 MEQ/L (3.5-5.1)
[2020-09-03] MEDS: ANALGESIC BALM CRM 120 GM TOP SCH ×2 (09:22→20:53)
[2020-09-03 09:30] VITALS: BP 158/70
[2020-09-03 14:00] VITALS: BP 146/81
--- NOTE | 2020-09-03 15:46 | IPNPDOC ---
Text Note Date of Service The patient was seen on 09/03/20. NOTE Subjective: No any acute events overnight. Patient was able to urinate. Knows the name of hospital but cannot say why she came to the Hospital. PHYSICAL: EXAM: VITALS: As below GENERAL APPEARANCE: NAD HEENT: no scleral icterus, NECK: no JVD, n thyromegaly, no lymphadenopathy CARDIOVASCULAR: S1S2 irregular, rate normal, no rub/ murmur or gallop LUNGS: CTA, diminished at the bases, no wheezingo rronchi. ABDOMEN: soft & not tender w palpitation, hyperperistatic bowel sounds MUSCULOSKELETAL: no cyanosis, no swelling EXTREMITIES: Bipedal edema. NEUROLOGICAL: cranial nerve function from 2-12 intact intact, follows commands, speech not dysarthric Labs and Radiology : reviewed. Assessment/Plan Patient is 85 years old female with past medical history of atrial fibrillation, dementia, diastolic CHF presented hospital after mechanical fall. According to her family patient was found on the floor in her apartment near the bed. Patient couldn't stand up and probably she was lying on the floor all night. In ER patient was found to have CPK 1039, creatinine 1.5. CT head negative for acute bleeding or stroke. Physical deconditioning Patient was found on the floor due to mechanical fall Imaging study negative PT/OT Rhabdomyolysis Secondary to mechanical fall resolved C diff Diarrhea Vancomycin by mouth 150 every 6 hours UTI developed acute urinary retention with bacteruria Urine culture E coli Lamas has been discontinued. cefdinir Dementia oriented to place and person. Pleasant and cooperative, feeds herself. LUIS MANUEL on CKD stage 3 due to diarrhea/ poor ora intake/ urinary retention Patient has poor oral intake Continue to monitor Chronic Atrial fibrillation continue metoprolol and eliquis Hypertension/hypertensive urgency on Amlodipine, lisinopril, hydralazine, metoprolol Delirium/encephalopathy Improved Frequent re orientation Urinary retention Resolved Diastolic CHF ECHO 12/04/16 LVEF 65-70% AND UNABLE TO ASSESS DIASTOLIC FUNCTION DUE TO AFIB stop ivf. CHRONIC BACK PAIN; MRI 05/2016 SHOWED SPINAL NERVE COMPRESSION AT L3 AND L4 GOUT VS,Fishbone, I+O VS, Fishbone, I+O Laboratory Tests 09/02/20 10:30 Vital Signs Date Time Temp Pulse Resp B/P (MAP) Pulse Ox O2 Delivery O2 Flow Rate FiO2 09/03/20 06:00 96.8 100 19 189/90 (217) 91 Room Air I&O- Last 24 Hours up to 6 AM 09/03/20 07:00 Intake Total 480 ml Output Total 555 ml Balance -75 ml JACINTO OBREGON MD Sep 03, 2020 06:33
[2020-09-03] MEDS ORDERED: MAGNESIUM OXIDE 400 MG TAB (MAG-OX) PO SCH (16:00)
[2020-09-03] MEDS: lisinopriL 40 MG TAB PO SCH (20:52)
[2020-09-03 22:00] VITALS: BP 164/84
[2020-09-04] MEDS: VANCOMYCIN ORAL SOL 250MG/5ML ORAL SYRINGE PO SCH ×4 (00:11→17:21)
[2020-09-04] MEDS: SODIUM CHLORIDE 0.9% INJ 10 ML SYR IV SCH ×2 (05:18→17:22)
[2020-09-04 06:00] VITALS: BP 163/89
[2020-09-04 06:44] LABS: BASO # 0.1 10^3/uL (0.0-0.2); BASO % 1.4 % (0.0-1.0); EOS # 0.2 10^3/uL (0.0-0.5); EOS % 3.9 % (0.0-3.0); HEMATOCRIT 33.2 % (36.0-47.0); HEMOGLOBIN 10.7 g/dl (12.0-15.5); LYMPH # 0.7 10^3/uL (1.5-5.0); LYMPH % 14.1 % (24.0-44.0); MEAN CORPUSCULAR HEMOGLOBIN 30.8 pg (27.0-33.0); MEAN CORPUSCULAR HGB CONC 32.2 g/dl (32.0-36.5); MEAN CORPUSCULAR VOLUME 95.7 fl (80.0-96.0); MONO # 0.4 10^3/uL (0.0-0.8); MONO % 8.4 % (0.0-5.0); NEUTROPHILS # 3.7 10^3/uL (1.5-8.5); NEUTROPHILS % 71.8 % (36.0-66.0); PLATELET COUNT, AUTOMATED 309 10^3/uL (150-450); RED BLOOD COUNT 3.47 10^6/uL (4.00-5.40); WHITE BLOOD COUNT 5.1 10^3/uL (4.0-10.0)
[2020-09-04 07:05] LABS: CALCIUM LEVEL 9.5 MG/DL (8.8-10.2); CREATININE FOR GFR 1.17 MG/DL (0.55-1.30); MAGNESIUM LEVEL 1.8 MG/DL (1.8-2.4); POTASSIUM SERUM 3.7 MEQ/L (3.5-5.1)
[2020-09-04] MEDS: SERTRALINE HCL 25 MG TABLET PO SCH (10:18)
[2020-09-04] MEDS: CEFDINIR 300 MG CAP (OMNICEF) PO SCH ×2 (10:18→20:42)
[2020-09-04] MEDS: APIXABAN 5 MG TAB (ELIQUIS) PO SCH ×2 (10:19→20:43)
[2020-09-04] MEDS: ANALGESIC BALM CRM 120 GM TOP SCH ×2 (10:19→20:43)
[2020-09-04] MEDS: MAGNESIUM GLUCONATE 500 MG TAB PO SCH ×2 (10:20→20:43)
[2020-09-04] MEDS: METOPROLOL TART 25 MG TABLET PO SCH ×4 (10:21→20:42)
[2020-09-04] MEDS: **hydrALAZINE** 50 MG TAB PO SCH ×3 (10:21→20:42)
[2020-09-04] MEDS: amLODIPine 10 MG TAB PO SCH (10:22)
--- NOTE | 2020-09-04 12:04 | IPNPDOC ---
Text Note Date of Service The patient was seen on 09/04/20. NOTE Subjective: No any acute events overnight. Patient was able to urinate. Knows the name of hospital but cannot say why she came to the Hospital. PHYSICAL: EXAM: VITALS: As below GENERAL APPEARANCE: NAD, Oriented x 2 HEENT: no scleral icterus, NECK: no JVD, n thyromegaly, no lymphadenopathy CARDIOVASCULAR: S1S2 irregular, rate normal, no rub/ murmur or gallop LUNGS: CTA, diminished at the bases, no wheezing ronchi. ABDOMEN: soft & not tender w palpitation, normal bowel sounds. MUSCULOSKELETAL: no cyanosis, no swelling EXTREMITIES: No edema NEUROLOGICAL: cranial nerve function from 2-12 intact intact, follows commands, speech not dysarthric Labs and Radiology : reviewed. Assessment/Plan Patient is 85 years old female with past medical history of atrial fibrillation, dementia, diastolic CHF presented hospital after mechanical fall. According to her family patient was found on the floor in her apartment near the bed. Patient couldn't stand up and probably she was lying on the floor all night. In ER patient was found to have CPK 1039, creatinine 1.5. CT head negative for acute bleeding or stroke. Physical deconditioning Patient was found on the floor due to mechanical fall Imaging study negative PT/OT recommendation STR. Rhabdomyolysis Secondary to mechanical fall resolved C diff Diarrhea improved Vancomycin by mouth 150 every 6 hours UTI/ Cystitis developed acute urinary retention with bacteruria Urine culture E coli Lamas has been discontinued. cefdinir Dementia oriented to place and person. Pleasant and cooperative, feeds herself. LUIS MANUEL on CKD stage 3 due to diarrhea/ poor ora intake/ urinary retention Patient has poor oral intake Continue to monitor Chronic Atrial fibrillation continue metoprolol and eliquis Hypertension/hypertensive urgency on Amlodipine, lisinopril, hydralazine, metoprolol Delirium/encephalopathy on the back ground of dementia. Improved Frequent re orientation Diastolic CHF ECHO 12/04/16 LVEF 65-70% AND UNABLE TO ASSESS DIASTOLIC FUNCTION DUE TO AFIB Euvolemic at present. CHRONIC BACK PAIN; MRI 05/2016 SHOWED SPINAL NERVE COMPRESSION AT L3 AND L4 Gout no issues at present. Dispo: STR VS,Fishbone, I+O VS, Fishbone, I+O Laboratory Tests 09/04/20 06:19 Vital Signs Date Time Temp Pulse Resp B/P (MAP) Pulse Ox O2 Delivery O2 Flow Rate FiO2 09/04/20 10:22 78 177/80 09/04/20 06:00 98.4 20 96 09/03/20 14:00 Room Air I&O- Last 24 Hours up to 6 AM 09/04/20 06:00 Intake Total 1160 ml Output Total 1 ml Balance 1159 ml JACINTO OBREGON MD Sep 04, 2020 12:04
[2020-09-04 14:00] VITALS: BP 147/51
[2020-09-04] MEDS: lisinopriL 40 MG TAB PO SCH (20:42)
[2020-09-04 22:00] VITALS: BP 110/68
[2020-09-05] MEDS: VANCOMYCIN ORAL SOL 250MG/5ML ORAL SYRINGE PO SCH ×4 (00:19→17:57)
[2020-09-05] MEDS: SODIUM CHLORIDE 0.9% INJ 10 ML SYR IV SCH ×2 (05:18→17:57)
[2020-09-05 06:00] VITALS: BP 153/66
[2020-09-05 06:43] LABS: BASO # 0.1 10^3/uL (0.0-0.2); BASO % 1.2 % (0.0-1.0); EOS # 0.2 10^3/uL (0.0-0.5); EOS % 4.1 % (0.0-3.0); HEMATOCRIT 32.2 % (36.0-47.0); HEMOGLOBIN 10.3 g/dl (12.0-15.5); LYMPH # 0.9 10^3/uL (1.5-5.0); LYMPH % 18.6 % (24.0-44.0); MEAN CORPUSCULAR HEMOGLOBIN 30.3 pg (27.0-33.0); MEAN CORPUSCULAR VOLUME 94.7 fl (80.0-96.0); MONO # 0.5 10^3/uL (0.0-0.8); NEUTROPHILS # 3.2 10^3/uL (1.5-8.5); NEUTROPHILS % 65.9 % (36.0-66.0); PLATELET COUNT, AUTOMATED 314 10^3/uL (150-450); WHITE BLOOD COUNT 4.9 10^3/uL (4.0-10.0)
[2020-09-05 07:18] LABS: CALCIUM LEVEL 9.2 MG/DL (8.8-10.2); CREATININE FOR GFR 1.08 MG/DL (0.55-1.30); GLOMERULAR FILTRATION RATE 51.6 (>32); MAGNESIUM LEVEL 1.7 MG/DL (1.8-2.4); POTASSIUM SERUM 3.3 MEQ/L (3.5-5.1)
[2020-09-05] MEDS ORDERED: POTASSIUM CHLORIDE 10 MEQ SR TABLET PO ONE (08:15)
[2020-09-05] MEDS: MAGNESIUM GLUCONATE 500 MG TAB PO SCH ×2 (09:14→22:29)
[2020-09-05] MEDS: amLODIPine 10 MG TAB PO SCH (09:14)
[2020-09-05] MEDS: SERTRALINE HCL 25 MG TABLET PO SCH (09:14)
[2020-09-05] MEDS: APIXABAN 5 MG TAB (ELIQUIS) PO SCH ×2 (09:14→22:29)
[2020-09-05] MEDS: **hydrALAZINE** 50 MG TAB PO SCH ×3 (09:16→22:35)
[2020-09-05] MEDS: ANALGESIC BALM CRM 120 GM TOP SCH ×2 (09:20→22:36)
[2020-09-05] MEDS: METOPROLOL TART 25 MG TABLET PO SCH ×4 (09:20→22:36)
[2020-09-05] MEDS: CEFDINIR 300 MG CAP (OMNICEF) PO SCH ×2 (09:26→22:29)
[2020-09-05] MEDS ORDERED: LISI40TA PO (12:39)
[2020-09-05] MEDS ORDERED: ELIQ5TAB PO (12:39)
[2020-09-05] MEDS ORDERED: HYDR50TA PO (12:39)
[2020-09-05] MEDS ORDERED: FURO80TA2 PO (12:39)
[2020-09-05] MEDS ORDERED: VANC125C3 PO (12:39)
[2020-09-05] MEDS ORDERED: CEFD300CAP PO (12:39)
[2020-09-05] MEDS ORDERED: METO1TAB87 PO (12:39)
[2020-09-05] MEDS ORDERED: FUROSEMIDE 40 MG TAB PO ONE (14:15)
[2020-09-05 22:35] VITALS: BP 154/68
[2020-09-05] MEDS: lisinopriL 40 MG TAB PO SCH (22:36)
[2020-09-06] MEDS: VANCOMYCIN ORAL SOL 250MG/5ML ORAL SYRINGE PO SCH ×3 (00:34→12:26)
[2020-09-06] MEDS: SODIUM CHLORIDE 0.9% INJ 10 ML SYR IV SCH (05:30)
[2020-09-06 06:00] VITALS: BP 136/88
[2020-09-06 07:27] LABS: BASO # 0.1 10^3/uL (0.0-0.2); BASO % 1.2 % (0.0-1.0); EOS # 0.2 10^3/uL (0.0-0.5); EOS % 3.9 % (0.0-3.0); HEMOGLOBIN 9.9 g/dl (12.0-15.5); LYMPH # 0.9 10^3/uL (1.5-5.0); LYMPH % 14.8 % (24.0-44.0); MEAN CORPUSCULAR HEMOGLOBIN 30.2 pg (27.0-33.0); MEAN CORPUSCULAR HGB CONC 31.9 g/dl (32.0-36.5); MEAN CORPUSCULAR VOLUME 94.5 fl (80.0-96.0); MONO # 0.5 10^3/uL (0.0-0.8); MONO % 8.2 % (0.0-5.0); NEUTROPHILS # 4.3 10^3/uL (1.5-8.5); NEUTROPHILS % 71.6 % (36.0-66.0); PLATELET COUNT, AUTOMATED 309 10^3/uL (150-450); RED BLOOD COUNT 3.28 10^6/uL (4.00-5.40)
[2020-09-06 07:48] LABS: CALCIUM LEVEL 8.9 MG/DL (8.8-10.2); CREATININE FOR GFR 1.21 MG/DL (0.55-1.30); GLOMERULAR FILTRATION RATE 45.2 (>32); MAGNESIUM LEVEL 1.8 MG/DL (1.8-2.4); POTASSIUM SERUM 3.6 MEQ/L (3.5-5.1)
[2020-09-06] MEDS ORDERED: FUROSEMIDE 40 MG TAB PO SCH (09:00)
[2020-09-06] MEDS: CEFDINIR 300 MG CAP (OMNICEF) PO SCH (10:00)
[2020-09-06] MEDS: MAGNESIUM GLUCONATE 500 MG TAB PO SCH (10:00)
[2020-09-06] MEDS: amLODIPine 10 MG TAB PO SCH (10:01)
[2020-09-06] MEDS: APIXABAN 5 MG TAB (ELIQUIS) PO SCH (10:01)
[2020-09-06] MEDS: **hydrALAZINE** 50 MG TAB PO SCH (10:01)
[2020-09-06] MEDS: SERTRALINE HCL 25 MG TABLET PO SCH (10:01)
[2020-09-06] MEDS: METOPROLOL TART 25 MG TABLET PO SCH ×2 (10:02→12:27)
[2020-09-06] MEDS: ANALGESIC BALM CRM 120 GM TOP SCH (10:03)
--- NOTE | 2020-09-06 12:42 | DS.PDOC ---
Discharge Summary General Date of Admission Aug 24, 2020 at 15:05 Date of Discharge 09/06/20 Discharge Summary PROCEDURES PERFORMED DURING STAY: [None]. DISCHARGE DIAGNOSES: UTI/ Cystitis with acute retention C diff infection Hypertensive urgency Acute delirium on the background of Dementia Generalized deconditioning and falls Rhabdomyolysis Dementia LUIS MANUEL on CKD -3 Diastolic CHF Chronic A fib Gout Chronic Back pain COMPLICATIONS/CHIEF COMPLAINT: Physical Deconditioning. HOSPITAL COURSE: Patient is 85 years old female with past medical history of atrial fibrillation, dementia, diastolic CHF presented hospital after mechanical fall. According to her family patient was found on the floor in her apartment near the bed. Patient couldn't stand up and probably she was lying on the floor all night. In ER patient was found to have CPK 1039, creatinine 1.5. CT head negative for acute bleeding or stroke. Physical deconditioning Patient was found on the floor due to mechanical fall Imaging study negative PT/OT recommendation STR. Rhabdomyolysis Secondary to mechanical fall resolved C diff Diarrhea improved Vancomycin by mouth 150 every 6 hours UTI/ Cystitis developed acute urinary retention with bacteruria Urine culture E coli Lamas has been discontinued. cefdinir Dementia oriented to place and person. Pleasant and cooperative, feeds herself. LUIS MANUEL on CKD stage 3 due to diarrhea/ poor ora intake/ urinary retention Patient has poor oral intake Continue to monitor Chronic Atrial fibrillation continue metoprolol and eliquis Hypertension/hypertensive urgency on Amlodipine, lisinopril, hydralazine, metoprolol Delirium/encephalopathy on the back ground of dementia. Improved Frequent re orientation Diastolic CHF ECHO 12/04/16 LVEF 65-70% AND UNABLE TO ASSESS DIASTOLIC FUNCTION DUE TO AFIB Euvolemic at present. CHRONIC BACK PAIN; MRI 05/2016 SHOWED SPINAL NERVE COMPRESSION AT L3 AND L4 Gout no issues at present. DISCHARGE MEDICATIONS: Please see below. ALLERGIES: Please see below. PHYSICAL EXAMINATION ON DISCHARGE: VITAL SIGNS: Please see below. GENERAL APPEARANCE: NAD, Oriented x 2 HEENT: no scleral icterus, NECK: no JVD, n thyromegaly, no lymphadenopathy CARDIOVASCULAR: S1S2 irregular, rate normal, no rub/ murmur or gallop LUNGS: CTA, diminished at the bases, no wheezing ronchi. ABDOMEN: soft & not tender w palpitation, normal bowel sounds. MUSCULOSKELETAL: no cyanosis, no swelling EXTREMITIES: No edema NEUROLOGICAL: cranial nerve function from 2-12 intact intact, follows commands, speech not dysarthric LABORATORY DATA: Please see below. ACTIVITY: [As tolerated]. DIET: 2 gm sodium DISCHARGE PLAN: [place] STR DISCHARGE CONDITION: [Stable]. TIME SPENT ON DISCHARGE: 35 minutes. Vital Signs/I&Os Vital Signs Date Time Temp Pulse Resp B/P (MAP) Pulse Ox O2 Delivery O2 Flow Rate FiO2 09/06/20 06:00 97.3 68 18 136/88 (104) 97 09/04/20 14:00 Room Air I&O- Last 24 Hours up to 6 AM 09/06/20 06:00 Intake Total 600 ml Output Total 350 ml Balance 250 ml Laboratory Data Labs 24H Laboratory Tests 2 09/05/20 18:49: Coronavirus (COVID-19)(PCR) NEGATIVE 09/06/20 06:45: Immature Granulocyte % (Auto) 0.3, Neutrophils (%) (Auto) 71.6H, Lymphocytes (%) (Auto) 14.8L, Monocytes (%) (Auto) 8.2H, Eosinophils (%) (Auto) 3.9H, Basophils (%) (Auto) 1.2H, Neutrophils # (Auto) 4.3, Lymphocytes # (Auto) 0.9L, Monocytes # (Auto) 0.5, Eosinophils # (Auto) 0.2, Basophils # (Auto) 0.1, Nucleated Red Blood Cells % (auto) 0.0, Anion Gap 6L, Glomerular Filtration Rate 45.2, Calcium Level 8.9, Magnesium Level 1.8 CBC/BMP Laboratory Tests 09/06/20 06:45 Microbiology Microbiology 08/31/20 Urine Culture - Final, Complete Escherichia Coli 08/27/20 Urine Culture - Final, Complete Discharge Medications Scheduled Amlodipine Besylate (Amlodipine Besylate) 10 Mg Tablet, 10 MG PO DAILY, (Reported) Apixaban (Eliquis) 5 Mg Tablet, 5 MG PO BID Cefdinir (Cefdinir) 300 Mg Capsule, 300 MG PO BID For 3 days Cholecalciferol (Vitamin D3) (Vitamin D3) 125 Mcg Tablet, 125 MCG PO DAILY, (Reported) Furosemide (Furosemide) 80 Mg Tablet, 40 MG PO DAILY Hydralazine HCl (Hydralazine HCl) 50 Mg Tablet, 50 MG PO TID Lisinopril (Lisinopril) 40 Mg Tablet, 40 MG PO QHS Metoprolol Tartrate (Metoprolol Tartrate) 25 Mg Tablet, 50 MG PO BID Sertraline HCl (Sertraline HCl) 25 Mg Tablet, 25 MG PO DAILY, (Reported) Vancomycin Hcl (Vancomycin HCl) 125 Mg Capsule, 1 CAP PO QID For 5 days Allergies Coded Allergies: No Known Allergies (Unverified , 08/24/20) JACINTO OBREGON MD Sep 06, 2020 12:42
== END 2020-09-06 14:12 | DRG 558 ==
LOC: M ED 10:37 → EDBD 10:37 → M ED INP 15:05 → ENRESERV 15:39 → M MSPAV 16:48
PROVIDERS: ADMIT Internal Medicine; ATTEND Internal Medicine Nephrology
DX: M62.82 Rhabdomyolysis (principal); I13.0 Hypertensive heart and chronic kidney disease with heart failure and stage 1 through stage 4 chronic kidney disease, or unspecified chronic kidney disease; I50.32 Chronic diastolic (congestive) heart failure; I48.20 Chronic atrial fibrillation, unspecified; N17.9 Acute kidney failure, unspecified; A04.72 Enterocolitis due to Clostridium difficile, not specified as recurrent; N39.0 Urinary tract infection, site not specified; F03.91 Unspecified dementia, unspecified severity, with behavioral disturbance; N18.30 Chronic kidney disease, stage 3 unspecified; I16.0 Hypertensive urgency; M10.9 Gout, unspecified; M54.5 Low back pain; Z79.899 Other long term (current) drug therapy; B96.29 Other Escherichia coli [E. coli] as the cause of diseases classified elsewhere

== ENCOUNTER → 2020-10-11 | Outpatient (REF) | payer MEDICARE ==
[~2020-10-11] MED LIST changes: +AMLO1TAB25 PO; +BISO5TAB14 PO; +CEFD300CAP PO; +ELIQ5TAB PO; +FURO80TA2 PO; +HYDR50TA PO; +LISI40TA PO; +METO1TAB87 PO; +SERT25TA21 PO; +VANC125C3 PO; +VITA500030 PO; -bisoproloL fumarate 5 MG TAB PO SCH
[2020-10-11 13:47] LABS: HEMOGLOBIN 10.4 g/dl (12.0-15.5); MEAN CORPUSCULAR HEMOGLOBIN 30.5 pg (27.0-33.0); MEAN CORPUSCULAR HGB CONC 30.6 g/dl (32.0-36.5); MEAN CORPUSCULAR VOLUME 99.7 fl (80.0-96.0); PLATELET COUNT, AUTOMATED 247 10^3/uL (150-450); RED BLOOD COUNT 3.41 10^6/uL (4.00-5.40); WHITE BLOOD COUNT 5.2 10^3/uL (4.0-10.0)
[2020-10-11 14:15] LABS: CREATININE FOR GFR 1.17 MG/DL (0.55-1.30)
== END ==
LOC: M SFHCPLAZ 11:46
PROVIDERS: ATTEND Family Medicine
DX: N18.31 Chronic kidney disease, stage 3a (principal); Z79.899 Other long term (current) drug therapy
CPT/HCPCS: 36415; 80048; 85027; G0463

== ENCOUNTER → 2020-10-23 | Outpatient (REF) | payer MEDICARE ==
[2020-10-23 15:38] LABS: HEMATOCRIT 32.9 % (36.0-47.0); HEMOGLOBIN 9.9 g/dl (12.0-15.5); MEAN CORPUSCULAR HEMOGLOBIN 29.8 pg (27.0-33.0); MEAN CORPUSCULAR HGB CONC 30.1 g/dl (32.0-36.5); MEAN CORPUSCULAR VOLUME 99.1 fl (80.0-96.0); PLATELET COUNT, AUTOMATED 295 10^3/uL (150-450); RED BLOOD COUNT 3.32 10^6/uL (4.00-5.40); WHITE BLOOD COUNT 4.8 10^3/uL (4.0-10.0)
[2020-10-23 15:51] LABS: HEMATOCRIT 32.9 % (36.0-47.0)
[2020-10-23 16:52] LABS: PERCENT SATURATION 20.5 % (13.2-45.0)
== END ==
LOC: M LAB REF 15:05
PROVIDERS: ATTEND Family Medicine
DX: D64.9 Anemia, unspecified (principal)

== ENCOUNTER → 2020-10-27 | Outpatient (REF) | payer MEDICARE ==
[2020-10-27 15:45] LABS: HEMOGLOBIN 10.3 g/dl (12.0-15.5); MEAN CORPUSCULAR HGB CONC 30.3 g/dl (32.0-36.5); MEAN CORPUSCULAR VOLUME 99.1 fl (80.0-96.0); PLATELET COUNT, AUTOMATED 311 10^3/uL (150-450); RED BLOOD COUNT 3.43 10^6/uL (4.00-5.40); WHITE BLOOD COUNT 5.9 10^3/uL (4.0-10.0)
[2020-10-27 16:56] LABS: ALBUMIN 3.7 GM/DL (3.2-5.2); ALT/SGPT 23 U/L (12-78); BILIRUBIN,DIRECT < 0.1 MG/DL (0.0-0.2); BILIRUBIN,TOTAL 0.3 MG/DL (0.2-1.0); BLOOD UREA NITROGEN 41 MG/DL (7-18); CALCIUM LEVEL 9.3 MG/DL (8.8-10.2); CARBON DIOXIDE LEVEL 27 MEQ/L (21-32); CHLORIDE LEVEL 102 MEQ/L (98-107); CREATININE FOR GFR 1.49 MG/DL (0.55-1.30); GLOMERULAR FILTRATION RATE 35.6 (>32); GLUCOSE, FASTING 85 MG/DL (70-100); LDH LACTATE DEHYDROGENASE 219 U/L (84-246); POTASSIUM SERUM 4.8 MEQ/L (3.5-5.1); SODIUM LEVEL 135 MEQ/L (136-145); TOTAL PROTEIN 7.1 GM/DL (6.4-8.2)
== END ==
LOC: M LAB REF 14:59
PROVIDERS: ATTEND Family Medicine
DX: D64.9 Anemia, unspecified (principal)

== ENCOUNTER → 2020-12-07 | Outpatient (CLI) | payer MEDICARE ==
[~2020-12-07] MED LIST changes: -LISI40TA PO; +LISI40TA4 PO
--- NOTE | 2020-12-07 17:39 | REP ---
INDICATION: PAIN IN LT WRIST. COMPARISON: None. TECHNIQUE: Four views FINDINGS: Some mildly impacted distal radial metaphyseal fracture of the dorsal and radiad aspect of the distal radius that also extends to the ulnar aspect. I do not see significant angulation or displacement. There is some chondrocalcinosis over the triangular fibrocartilage region. 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 There also soft tissue calcifications dorsal to the wrist and volar to it. No definite acute carpal fracture with metacarpals intact. The MCP joints show narrowing and some spur formation marginally. No gross fracture of the proximal phalanges IMPRESSION: 1. Mildly impacted fracture distal radial metaphysis dorsally and extending from the radial side to the ulnar side without angulation, displacement or comminution. 2. 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 3. 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 <Electronically signed by Jaspal Mane > 12/07/20 [id number]
== END ==
LOC: M WUC 14:51
PROVIDERS: ATTEND Physician Assistant
DX: S52.502A Unspecified fracture of the lower end of left radius, initial encounter for closed fracture (principal); X58.XXXA Exposure to other specified factors, initial encounter; Y92.89 Other specified places as the place of occurrence of the external cause; Y93.89 Activity, other specified; Y99.8 Other external cause status; M19.032 Primary osteoarthritis, left wrist

== ENCOUNTER → 2021-01-08 | Outpatient (REF) | payer MEDICARE ==
[2021-01-08 14:11] LABS: HEMATOCRIT 32.9 % (36.0-47.0); HEMOGLOBIN 10.2 g/dl (12.0-15.5); MEAN CORPUSCULAR HEMOGLOBIN 31.6 pg (27.0-33.0); MEAN CORPUSCULAR VOLUME 101.9 fl (80.0-96.0); PLATELET COUNT, AUTOMATED 214 10^3/uL (150-450); RED BLOOD COUNT 3.23 10^6/uL (4.00-5.40); WHITE BLOOD COUNT 6.1 10^3/uL (4.0-10.0)
[2021-01-08 15:45] LABS: CALCIUM LEVEL 9.4 MG/DL (8.8-10.2); CREATININE FOR GFR 1.55 MG/DL (0.55-1.30); GLOMERULAR FILTRATION RATE 33.9 (>32); POTASSIUM SERUM 5.3 MEQ/L (3.5-5.1); URIC ACID 7.2 MG/DL (2.6-6.0)
[2021-01-08 15:55] LABS: PTH INTACT 102.9 PG/ML (18.5-88.0); TOTAL 25(OH) VITAMIN D 65.8 NG/ML (30.0-100.0)
== END ==
LOC: M SFHCPLAZ 10:26
PROVIDERS: ATTEND Family Medicine
DX: N18.32 Chronic kidney disease, stage 3b (principal); M81.0 Age-related osteoporosis without current pathological fracture; M1A.0720 Idiopathic chronic gout, left ankle and foot, without tophus (tophi); E55.9 Vitamin D deficiency, unspecified
CPT/HCPCS: 36415; 80048; 82306; 83970; 84550; 85027; G0463

== ENCOUNTER → 2021-02-23 | Outpatient (REF) | payer MEDICARE ==
[2021-02-23 11:22] LABS: HEMATOCRIT 32.6 % (36.0-47.0); HEMOGLOBIN 9.9 g/dl (12.0-15.5); MEAN CORPUSCULAR HEMOGLOBIN 31.7 pg (27.0-33.0); MEAN CORPUSCULAR HGB CONC 30.4 g/dl (32.0-36.5); MEAN CORPUSCULAR VOLUME 104.5 fl (80.0-96.0); PLATELET COUNT, AUTOMATED 233 10^3/uL (150-450); RED BLOOD COUNT 3.12 10^6/uL (4.00-5.40); WHITE BLOOD COUNT 4.7 10^3/uL (4.0-10.0)
[2021-02-23 12:18] LABS: CALCIUM LEVEL 10.2 MG/DL (8.8-10.2); CREATININE FOR GFR 2.06 MG/DL (0.55-1.30); GLOMERULAR FILTRATION RATE 24.4 (>32); POTASSIUM SERUM 5.2 MEQ/L (3.5-5.1); URIC ACID 5.2 MG/DL (2.6-6.0)
== END ==
LOC: M SFHCPLAZ 08:41
PROVIDERS: ATTEND Family Medicine
DX: N18.32 Chronic kidney disease, stage 3b (principal); M1A.0720 Idiopathic chronic gout, left ankle and foot, without tophus (tophi)
CPT/HCPCS: 36415; 80048; 84550; 85027; G0463

== ENCOUNTER → 2021-08-31 | Outpatient (CLI) | payer MEDICARE ==
[2021-08-31 18:11] LABS: CALCIUM LEVEL 9.6 MG/DL (8.8-10.2); CREATININE FOR GFR 1.43 MG/DL (0.55-1.30); GLOMERULAR FILTRATION RATE 37.2 (>32); POTASSIUM SERUM 4.3 MEQ/L (3.5-5.1)
== END ==
LOC: M PLALAB 14:49
PROVIDERS: ATTEND Family Medicine
DX: I10 Essential (primary) hypertension (principal)

== ENCOUNTER → 2021-09-09 | Outpatient (REF) | payer MEDICARE | LOC: M LAB REF 10:05 | PROVIDERS: ATTEND Family Medicine | DX: Z51.81 Encounter for therapeutic drug level monitoring (principal); Z79.899 Other long term (current) drug therapy ==

== ENCOUNTER → 2022-02-12 | Outpatient (CLI) | payer MEDICARE ==
[2022-02-12 12:18] LABS: HEMATOCRIT 34.7 % (36.0-47.0); HEMOGLOBIN 11.2 g/dl (12.0-15.5); MEAN CORPUSCULAR HEMOGLOBIN 32.7 pg (27.0-33.0); MEAN CORPUSCULAR HGB CONC 32.3 g/dl (32.0-36.5); MEAN CORPUSCULAR VOLUME 101.5 fl (80.0-96.0); PLATELET COUNT, AUTOMATED 220 10^3/uL (150-450); RED BLOOD COUNT 3.42 10^6/uL (4.00-5.40); WHITE BLOOD COUNT 4.5 10^3/uL (4.0-10.0)
[2022-02-12 13:02] LABS: CALCIUM LEVEL 9.8 MG/DL (8.8-10.2); CREATININE FOR GFR 1.53 MG/DL (0.55-1.30); GLOMERULAR FILTRATION RATE 34.3 (>32); POTASSIUM SERUM 4.1 MEQ/L (3.5-5.1); URIC ACID 4.8 MG/DL (2.6-6.0)
== END ==
LOC: M PLALAB 09:49
PROVIDERS: ATTEND Family Medicine
DX: I12.9 Hypertensive chronic kidney disease with stage 1 through stage 4 chronic kidney disease, or unspecified chronic kidney disease (principal); N18.32 Chronic kidney disease, stage 3b; D63.1 Anemia in chronic kidney disease; M1A.0720 Idiopathic chronic gout, left ankle and foot, without tophus (tophi)

== ENCOUNTER → 2022-07-05 | Outpatient (CLI) | payer MEDICARE ==
[2022-07-05 11:27] LABS: BILIRUBIN,TOTAL 0.3 MG/DL (0.2-1.0); CALCIUM LEVEL 9.6 MG/DL (8.8-10.2); CREATININE FOR GFR 1.54 MG/DL (0.55-1.30); GLOMERULAR FILTRATION RATE 34.1 (>32); POTASSIUM SERUM 4.7 MEQ/L (3.5-5.1); TOTAL PROTEIN 7.5 GM/DL (6.4-8.2); URIC ACID 5.3 MG/DL (2.6-6.0)
== END ==
LOC: M PLALAB 09:22
PROVIDERS: ATTEND Physician Assistant
DX: N18.32 Chronic kidney disease, stage 3b (principal); M1A.0720 Idiopathic chronic gout, left ankle and foot, without tophus (tophi)

== ENCOUNTER 2024-03-09 15:43 | Inpatient (IN) | payer MEDICARE ==
[~2024-03-09] VITALS: Ht 149.9 cm; Wt 45.5 kg
[~2024-03-09 15:43] MED LIST changes: -HYDR50TA PO; +HYDR50TA47 PO
[2024-03-09 16:15] VITALS: TEMP 99.7
[2024-03-09] MEDS: NS 1,000 ML IV SCH (17:03)
[2024-03-09 17:26] LABS: BASO % 0.1 % (0.0-1.0); HEMATOCRIT 27.7 % (36.0-47.0); LYMPH # 0.8 10^3/uL (1.5-5.0); LYMPH % 4.6 % (24.0-44.0); MEAN CORPUSCULAR HEMOGLOBIN 28.9 pg (27.0-33.0); MEAN CORPUSCULAR HGB CONC 32.5 g/dl (32.0-36.5); MEAN CORPUSCULAR VOLUME 89.1 fl (80.0-96.0); MONO # 0.9 10^3/uL (0.0-0.8); MONO % 5.1 % (2.0-8.0); NEUTROPHILS # 15.4 10^3/uL (1.5-8.5); NEUTROPHILS % 89.7 % (36.0-66.0); PLATELET COUNT, AUTOMATED 456 10^3/uL (150-450); RED BLOOD COUNT 3.11 10^6/uL (4.00-5.40); WHITE BLOOD COUNT 17.2 10^3/uL (4.0-10.0)
[2024-03-09] MEDS ORDERED: HYDR25TA87 PO (17:44)
[2024-03-09] MEDS ORDERED: METO50TA7 PO (17:44)
[2024-03-09] MEDS ORDERED: ELIQ5TAB PO (17:44)
[2024-03-09] MEDS ORDERED: UNIS25TA3 PO (17:44)
[2024-03-09] MEDS ORDERED: SERT50TA29 PO (17:44)
[2024-03-09] MEDS ORDERED: FURO40TA2 PO (17:44)
[2024-03-09] MEDS ORDERED: LISI20TA33 PO (17:44)
[2024-03-09] MEDS ORDERED: ALBU8.5H INH (17:44)
[2024-03-09] MEDS ORDERED: ALLO100T PO (17:47)
[2024-03-09 17:49] LABS: ERYTHROCYTE SEDIMENTATION RATE > 130 mm/hr (0-30)
[2024-03-09] MEDS ORDERED: HOME MED LIST COMPLETE! XX SCH (17:50)
[2024-03-09 17:51] LABS: ALBUMIN 1.7 G/DL (3.2-5.2); ALKALINE PHOSPHATASE 137 U/L (46-116); ALT/SGPT 76 U/L (7.0-40); AST/SGOT 121 U/L (<34); BILIRUBIN,TOTAL 0.3 MG/DL (0.3-1.2); BLOOD UREA NITROGEN 24 MG/DL (9-23); CALCIUM LEVEL 9.5 MG/DL (8.3-10.6); CARBON DIOXIDE LEVEL 28 MMOL/L (20-31); CHLORIDE LEVEL 106 MMOL/L (98-107); GLOMERULAR FILTRATION RATE > 60.0 (>32); GLUCOSE, FASTING 137 MG/DL (74-106); SODIUM LEVEL 141 MMOL/L (136-145); TOTAL PROTEIN 5.8 G/DL (5.7-8.2)
[2024-03-09] MEDS ORDERED: ACETAMINOPHEN TAB 650MG DOSE (2X325MG) PO PRN ×2 (18:05→23:30)
[2024-03-09] MEDS ORDERED: SCOPOLAMINE 1MG TRANSDERMAL PATCH TOP PRN (18:05)
[2024-03-09 19:00] VITALS: BP 168/87; O2SAT 96
[2024-03-09] MEDS: MORPHINE 10MG/0.5ML ORAL CONCENTRATE SOLUTION U/D SL PRN (22:40)
[2024-03-09] MEDS ORDERED: ACETAMINOPHEN 650MG SUPP PR PRN (23:30)
[2024-03-09] MEDS ORDERED: BISACODYL 10MG SUPP PR PRN (23:30)
[2024-03-10] MEDS: LORazepam 1 MG TAB PO PRN (00:11)
[2024-03-10] MEDS: MORPHINE 10MG/0.5ML ORAL CONCENTRATE SOLUTION U/D SL PRN (10:56)
== END 2024-03-14 14:15 | disposition expired | DRG 951 ==
LOC: EDBD 15:43 → M ED 15:43 → M ED INP 15:44 → M MS5PR 22:08 → OBSVTOIN 03-10 13:58
PROVIDERS: ADMIT Hospitalist; ATTEND Hospitalist
DX: Z51.5 Encounter for palliative care (principal); E43 Unspecified severe protein-calorie malnutrition; M86.671 Other chronic osteomyelitis, right ankle and foot; I96 Gangrene, not elsewhere classified; Z66 Do not resuscitate; R57.1 Hypovolemic shock; F03.90 Unspecified dementia, unspecified severity, without behavioral disturbance, psychotic disturbance, mood disturbance, and anxiety; I10 Essential (primary) hypertension; I48.91 Unspecified atrial fibrillation; E86.0 Dehydration; L89.219 Pressure ulcer of right hip, unspecified stage; L89.159 Pressure ulcer of sacral region, unspecified stage; Z79.51 Long term (current) use of inhaled steroids; Z79.01 Long term (current) use of anticoagulants; Z79.899 Other long term (current) drug therapy